=== PATIENT | male | born 1990 | race Caucasian/White ===

== ENCOUNTER 2016-11-22 09:00 | Outpatient (RCR) | payer MEDICAID ==
[~2016-11-22 09:00] MED LIST: /OL10DISTA PO; /QUET10TA PO; ACET50TA PO; AUGM875T27 PO; INVE234I IM; KLON0.5T PO; NO HISTORICAL MEDS; RISP1TAB3 PO; RISP2TAB3 PO; TRAZ50TA2 PO; TRAZ50TA4 PO; ZITH600T PO
== END 2016-11-27 ==
LOC: M OUTALCOH 09:00
PROVIDERS: ATTEND Psychiatry & Neurology Psychiatry
DX: F10.10 Alcohol abuse, uncomplicated (principal); F12.20 Cannabis dependence, uncomplicated

== ENCOUNTER 2016-12-21 16:00 | Outpatient (RCR) | payer MEDICAID | END 2016-12-25 | LOC: M OUTALCOH 16:00 | PROVIDERS: ATTEND Psychiatry & Neurology Psychiatry | DX: F10.10 Alcohol abuse, uncomplicated (principal); F12.20 Cannabis dependence, uncomplicated ==

== ENCOUNTER → 2017-01-17 | Outpatient (CLI) | payer OTHER, MEDICAID ==
[2017-01-17 13:32] LABS: MEAN CORPUSCULAR HEMOGLOBIN 30.1 pg (27.0-33.0); MEAN CORPUSCULAR HGB CONC 33.9 g/dl (32.0-36.5); RED CELL DISTRIBUTION WIDTH 12.3 % (11.5-14.5); WHITE BLOOD COUNT 8.4 K/mm3 (4.0-10.0)
[2017-01-17 13:34] LABS: ALBUMIN/GLOBULIN RATIO 1.43 (1.00-1.93); ALKALINE PHOSPHATASE 47 U/L (45-117); ALT/SGPT 23 U/L (12-78); ANION GAP 7 MEQ/L (8-16); AST/SGOT 24 U/L (15-37); BILIRUBIN,TOTAL 0.2 MG/DL (0.2-1.0); BLOOD UREA NITROGEN 15 MG/DL (7-18); CARBON DIOXIDE LEVEL 27 MEQ/L (21-32); CHLORIDE LEVEL 107 MEQ/L (98-107); CHOLESTEROL LEVEL 162 MG/DL (<200); CREATININE FOR GFR 1.02 MG/DL (0.70-1.30); GLOMERULAR FILTRATION RATE > 60.0 (>60); GLUCOSE, FASTING 104 MG/DL (70-105); SODIUM LEVEL 141 MEQ/L (136-145); TOTAL PROTEIN 6.8 GM/DL (6.4-8.2); TRIGLYCERIDES LEVEL 104 MG/DL (<150)
== END ==
LOC: M LAB 12:35
PROVIDERS: ATTEND Nurse Practitioner Family
DX: E78.5 Hyperlipidemia, unspecified (principal)

== ENCOUNTER 2017-02-09 02:08 | Emergency (ER) | payer MEDICAID, OTHER ==
[~2017-02-09] VITALS: Ht 170.2 cm; Wt 92.5 kg
[2017-02-09 02:13] VITALS: BP 138/97
[2017-02-09] MEDS ORDERED: INVE0.87 IM (02:26)
[2017-02-09] MEDS ORDERED: propanolol PO (02:26)
[2017-02-09] MEDS ORDERED: TRIC145T PO (02:26)
[2017-02-09] MEDS ORDERED: AMAN100T PO (02:26)
== END 2017-02-09 06:54 | disposition left against medical advice (07) ==
LOC: M ED 03:21
DX: R50.9 Fever, unspecified (principal); Z53.21 Procedure and treatment not carried out due to patient leaving prior to being seen by health care provider

== ENCOUNTER → 2017-02-21 | Outpatient (CLI) | payer MEDICAID ==
[~2017-02-21] MED LIST changes: +AMAN100T PO; +INVE0.87 IM; +TRIC145T PO; +propanolol PO
== END ==
LOC: M OUTALCOH 08:17
PROVIDERS: ATTEND Psychiatry & Neurology Psychiatry
DX: Z13.9 Encounter for screening, unspecified (principal)

== ENCOUNTER → 2017-06-11 | Outpatient (CLI) | payer OTHER ==
[~2017-06-11] MED LIST changes: +AMAN100C18 PO; +ATOR1TAB21; +CLON-412; +CLON-412 PO; +CLONI1TA PO; +DEPA250T2 PO; +DIVA500T9 PO; +FENO145T PO; +HYDR50TA70; +HYDR50TA70 PO; +HYDRO50TAB PO; +LEXA5TAB13; +LEXA5TAB13 PO; +LIPI20TA PO; +NICO21PAT TD; +OLAN5TAB PO; +OLAN5ZYD PO; +PROP1TAB29 PO; +QUET1TAB8 PO; +TRAZ50TA11 PO; -TRAZ50TA4 PO; +TRAZO50TA PO; -TRIC145T PO; +TRIC145T22 PO; +VITA100066 PO; +VITMTA PO
== END ==
LOC: M LAB 08:05
PROVIDERS: ATTEND Nurse Practitioner Psychiatric/Mental Health
DX: F20.9 Schizophrenia, unspecified (principal)

== ENCOUNTER → 2017-06-11 | Outpatient (CLI) | payer OTHER ==
[2017-06-11 08:51] LABS: MEAN CORPUSCULAR HEMOGLOBIN 30.9 pg (27.0-33.0); MEAN CORPUSCULAR HGB CONC 33.4 g/dl (32.0-36.5); MEAN CORPUSCULAR VOLUME 92.6 fl (80.0-96.0); RED CELL DISTRIBUTION WIDTH 12.9 % (11.5-14.5); WHITE BLOOD COUNT 5.6 K/mm3 (4.0-10.0)
[2017-06-11 09:22] LABS: ALBUMIN 3.8 GM/DL (3.2-5.2); ALBUMIN/GLOBULIN RATIO 1.23 (1.00-1.93); ALKALINE PHOSPHATASE 70 U/L (45-117); ALT/SGPT 22 U/L (12-78); ANION GAP 5 MEQ/L (8-16); AST/SGOT 21 U/L (15-37); BILIRUBIN,TOTAL 0.3 MG/DL (0.2-1.0); BLOOD UREA NITROGEN 10 MG/DL (7-18); CALCIUM LEVEL 8.7 MG/DL (8.5-10.1); CARBON DIOXIDE LEVEL 29 MEQ/L (21-32); CHLORIDE LEVEL 110 MEQ/L (98-107); CHOLESTEROL LEVEL 187 MG/DL (<200); CREATININE FOR GFR 0.99 MG/DL (0.70-1.30); GLOMERULAR FILTRATION RATE > 60.0 (>60); GLUCOSE, FASTING 102 MG/DL (70-105); POTASSIUM SERUM 4.1 MEQ/L (3.5-5.1); SODIUM LEVEL 144 MEQ/L (136-145); TOTAL PROTEIN 6.9 GM/DL (6.4-8.2); TRIGLYCERIDES LEVEL 113 MG/DL (<150)
== END ==
LOC: M LAB 08:09
PROVIDERS: ATTEND Nurse Practitioner Family
DX: E78.00 Pure hypercholesterolemia, unspecified (principal)

== ENCOUNTER 2017-07-13 06:31 | Inpatient (IN) | payer OTHER ==
[~2017-07-13] VITALS: Ht 170.2 cm; Wt 93.6 kg
[~2017-07-13 06:31] MED LIST changes: -AMAN100C18 PO; -ATOR1TAB21; -CLON-412; -CLON-412 PO; -CLONI1TA PO; -DEPA250T2 PO; -DIVA500T9 PO; -FENO145T PO; -HYDR50TA70; -HYDR50TA70 PO; -HYDRO50TAB PO; -LEXA5TAB13; -LEXA5TAB13 PO; -LIPI20TA PO; -NICO21PAT TD; -OLAN5TAB PO; -OLAN5ZYD PO; -PROP1TAB29 PO; -QUET1TAB8 PO; -TRAZO50TA PO; -VITA100066 PO; -VITMTA PO
[2017-07-13 07:02] LABS: MEAN CORPUSCULAR HEMOGLOBIN 31.3 pg (27.0-33.0); MEAN CORPUSCULAR HGB CONC 34.1 g/dl (32.0-36.5); MEAN CORPUSCULAR VOLUME 91.8 fl (80.0-96.0); RED CELL DISTRIBUTION WIDTH 12.4 % (11.5-14.5); WHITE BLOOD COUNT 5.4 K/mm3 (4.0-10.0)
[2017-07-13 07:24] LABS: METHADONE URINE NEGATIVE (NEGATIVE)
[2017-07-13 07:25] LABS: ALBUMIN 4.2 GM/DL (3.2-5.2); ALBUMIN/GLOBULIN RATIO 1.31 (1.00-1.93); ALKALINE PHOSPHATASE 55 U/L (45-117); ALT/SGPT 20 U/L (12-78); ANION GAP 10 MEQ/L (8-16); AST/SGOT 21 U/L (15-37); BILIRUBIN,DIRECT 0.1 MG/DL (0.0-0.2); BILIRUBIN,TOTAL 0.3 MG/DL (0.2-1.0); BLOOD UREA NITROGEN 17 MG/DL (7-18); CALCIUM LEVEL 8.9 MG/DL (8.5-10.1); CARBON DIOXIDE LEVEL 23 MEQ/L (21-32); CHLORIDE LEVEL 112 MEQ/L (98-107); CREATININE FOR GFR 1.19 MG/DL (0.70-1.30); GLOMERULAR FILTRATION RATE > 60.0 (>60); GLUCOSE, FASTING 123 MG/DL (70-105); POTASSIUM SERUM 4.1 MEQ/L (3.5-5.1); SODIUM LEVEL 145 MEQ/L (136-145); TOTAL PROTEIN 7.4 GM/DL (6.4-8.2)
[2017-07-13] MEDS ORDERED: NS 1,000 ML IV ONE (07:30)
[2017-07-13] MEDS ORDERED: CHARCOAL ACTIVATED LIQUID 25 GM/120 ML BTL PO ONE (08:00)
[2017-07-13] MEDS ORDERED: ONDANSETRON 4MG/2ML VIAL (J2405) IV ONE (08:30)
[2017-07-13] MEDS ORDERED: PROP1TAB29 PO (15:06)
[2017-07-13] MEDS ORDERED: MAALOX 30 ML SUSP *UDC PO PRN (17:00)
[2017-07-13] MEDS ORDERED: MOM 30ML SUSPENSION UDC PO PRN (17:00)
--- NOTE | 2017-07-13 17:28 | ECGEPIP ---
Stationary ECG Study [facility] - ED Test Date: 2017-07-13 Pat Name: VÍCTOR CONLEY Department: Room: - Gender: M Mrp Controller: rn : 1990 Requested By: SARMAD Mcdaniel Order Number: [id number] Reading MD: Erin Childress Measurements Intervals [place] Rate: 70 P: 51 NC: 164 QRS: 64 QRSD: 104 T: 28 QT: 339 QTc: 366 Interpretive Statements SINUS RHYTHM SIMILAR 12/22/14 Electronically Signed On 07-13-2017 17:28:26 EDT by Erin Childress
[2017-07-13] MEDS: traZODone 50 MG TAB PO PRN (20:40)
[2017-07-13] MEDS: FENOFIBRATE 145 MG TAB (TRICOR) PO SCH (21:00)
[2017-07-14 07:00] VITALS: BP 141/90
[2017-07-14] MEDS: FENOFIBRATE 145 MG TAB (TRICOR) PO SCH ×2 (08:47→21:09)
[2017-07-14] MEDS: NICOTINE 21MG/24HR 1 EA TRANSDERMAL TD SCH (12:17)
[2017-07-14] MEDS: OLANZapine ORAL DISINTEGRATING TAB 5MG PO PRN ×2 (12:17→21:10)
--- NOTE | 2017-07-14 17:31 | MHHPE ---
DATE OF ADMISSION: 07/13/2017 CHIEF COMPLAINT: Feels depressed, and took an overdose. SUBJECTIVE: He is 26 years old, he has a history of psychosis, has been diagnosed with schizophrenia in the recent past, though this is unclear. Has a history of auditory hallucinations, responding to internal stimuli, and has been in treatment, currently is seen at [facility]. He is on Invega Trinza, which is given every 3 months, he takes 410 mg, he last received it about 2 months ago. He says he attends his appointments regularly. He is also on amantadine at 100 mg twice a day, and says was off it for a few days. Other medications include propranolol 20 mg twice a day which he gets for anxiety. [facility] a [facility]. He has also been admitted here in the past. He says he was living at [facility] in [place] for about 4-1/2 years, and then recently apparently was smoking there, he says they suggested he was not allowed to, he decided he no longer wanted to be there, left them, says was homeless, though he is somewhat unclear about this, and says stayed at a friend's place, and during that time, had what he terms as a blackout and a seizure, says was taken to [facility], this happened within the last month or two. I do not have any details about that. He says they did not change any medicines, he was discharged, [facility] ([facility]) became involved in his care again, he was at the residence, and then was transferred to a [facility] apartment, says went there about 8 days ago, and that was anxiety provoking, in fact somewhat overwhelming, he says it was suggested that he should get a job, but he has felt he is not able to work. He felt despondent, and apparently was looking for cigarette butts outdoors, and then asked someone for a quarter and they refused. He says he went home, he took an overdose of several of the propranolols, he thought that would kill him "because they are blood pressure meds." He says he then decided to go to a bridge and jump off it, he called the police, informed them of what he was going to do, and they in fact met him there. He says he called them because he wanted them to stop him, says he is glad he did not jump. He does say, however, if it were not for them being there, he may well have gone ahead and jumped. Says gets the impression other people can listen to his thoughts, can know what they are, says during those times hears those thoughts as well, and the thoughts of other people, also suggests can read other peoples' thoughts, generally is concerned other people, not in the room, can make out what he is thinking. He denies any command hallucinations. Says has family in the area, but did not go into details, says they are aware he is here. PAST PSYCHIATRIC HISTORY: He has a history of inpatient hospitalizations, has been known to be psychotic, does say there are times when he feels "manic," which he terms as quicker thoughts, more intensity of the perceptual disturbances, says hears voices more often during those times. It is unclear why he was not taking the amantadine for a few days. Attends outpatient care at [facility]. MEDICAL HISTORY: Says had a blackout, was told he had a seizure, and was taken to [facility], though I am not aware of that, or have any details. ALLERGIES: SULFA DRUGS, VANCOMYCIN. MEDICATIONS: These include: - Invega Trinza 410 mg once every 3 months - amantadine 100 mg twice a day - propranolol 20 mg twice a day - Tricor 145 mg daily SOCIAL HISTORY: Has been living at [facility] for the last few years, says has family in the area, but he did not go into details. MENTAL STATUS EXAMINATION: He is neat, appears well-nourished. He is cooperative, though a bit guarded. Currently there is no agitation, no psychomotor retardation. Has good eye contact. Answers questions briefly, logically, and coherently. No abnormal movements are noted. Affect is restricted in range, though shows reactivity, appears mildly anxious. He denies any suicidal thoughts or intents at present. No homicidal ideas or intents. At present, does not appear to be internally preoccupied. No delusional ideations elicited. He is alert, oriented to time, place, and person. Intellect average. No fluctuation of consciousness. Judgment poor. Insight fair. INVESTIGATIONS: Complete blood count essentially within normal limits. Metabolic profile essentially within normal limits except for a slightly raised chloride at 112. Urine toxicology is positive for cannabis, which he says he smokes fairly regularly, he suggests that the voices become more intense when he does. VITAL SIGNS: Blood pressure 141/90, pulse 63, temperature 98.3. ASSESSMENT: Schizophrenia. Rule out schizoaffective disorder, bipolar type. Recent move to an apartment. Long history of mental illness. Limited social supports, recent homelessness. The patient has been distressed, psychotic, perceptual disturbances, auditory hallucinations, this has impacted his functioning. [place] restless yesterday as well, last night, and banged his hands on the wall, and then went to sleep, woke up feeling better. PLAN: He is admitted to the inpatient psychiatry unit, placed on relevant precautions, and for now we will put him on one-on-one observation until he is more stable, this is to help him maintain his safety, and that of others as well. He is to continue with his medications, we will confirm the date of the next Invega injection. He has been off the amantadine for the last few days, we may look at resuming it, preferably doing that slowly. We will look at obtaining collateral information. He will receive a medicine consult if indicated. We will encourage him to be involved in individual, group, and milieu therapy. He will be discharged with followup once he is stable. I would anticipate at least a 7 day stay. The assessment took 40 minutes.
[2017-07-14 18:00] VITALS: BP 138/71
[2017-07-14] MEDS: LOTRISONE CREAM 15 GM (BETAMETH/CLOTRIMAZOLE) TOP SCH (21:00)
[2017-07-14] MEDS: traZODone 50 MG TAB PO PRN (21:09)
--- NOTE | 2017-07-15 03:23 | HPE ---
DATE OF ADMISSION: 07/13/2017 HISTORY OF PRESENT ILLNESS: Please refer to psychiatric history and evaluation for further details on this admission. This examination and history is intended for medical issues, which may need treatment, followup or consult on this 26-year-old male. PRIMARY CARE PROVIDER: Sharlene Riggs, nurse practitioner at [facility]. PAST MEDICAL HISTORY: 1. Psychosis. 2. Hyperlipidemia. PAST SURGICAL HISTORY: None. ALLERGIES: SULFA drugs cause hives, VANCOMYCIN causes redness and itching. SOCIAL HISTORY: He is single. He lives in a transitional living services ([facility]) apartment. He smokes approximately 50 cigarettes per day. He smokes marijuana. He does not drink alcohol. FAMILY HISTORY: Noncontributory. LABORATORY STUDIES: CBC was normal. Sodium 145, potassium 4.1, chloride 112, BUN and creatinine 17 and 1.19, nonfasting glucose 123. Urine was positive for cannabinoids. HOME MEDICATIONS: - amantadine 100 mg by mouth twice a day - fenofibrate 145 mg by mouth nightly - propranolol 20 mg by mouth twice a day as needed for anxiety - Invega Trinza 410 mg/1.315 mL injection intramuscularly (IM) every 3 months REVIEW OF SYSTEMS: 10-system review was done, was unremarkable. Patient had no complaints. OBJECTIVE: 26-year-old cooperative male in no acute distress. Height 67 inches, weight 93.6 kg, body mass index (BMI) 32.3. Blood pressure 132/78, pulse 63, respirations 16, temperature 98.5. Patient is alert and oriented times three. Pupils equal and react to light. Extraocular muscles intact. Cornea and sclerae clear. Conjunctivae were normal. No facial asymmetry. Pharynx, tongue and gums pink and moist. Tongue is midline. Neck is supple without lymphadenopathy. No thyromegaly, no goiter. Carotids 2+ without bruit. Chest clear to auscultation without wheeze or retraction. Heart is regular. Abdomen is benign. Bowel sounds positive. Genitourinary/rectal: Not done. Extremities show equal strength, full range of motion. No cyanosis, clubbing or edema. Skin is warm and dry. Small, quarter sized area top of left foot non-vesicular rash. No redness, drainage or swelling. Peripheral pulses equal and palpable bilaterally. IMPRESSION: 1. Scaly eczematous patch top of left foot. Will order Amnarisone twice a day. 2. Hyperlipidemia. Continue fenofibrate. 3. Psychiatric plan per psychiatry.
[2017-07-15 06:00] VITALS: BP 140/80
[2017-07-15] MEDS: OLANZapine ORAL DISINTEGRATING TAB 5MG PO PRN ×2 (08:07→20:43)
[2017-07-15] MEDS: FENOFIBRATE 145 MG TAB (TRICOR) PO SCH ×2 (08:09→20:34)
[2017-07-15] MEDS: LOTRISONE CREAM 15 GM (BETAMETH/CLOTRIMAZOLE) TOP SCH ×2 (08:09→20:34)
[2017-07-15] MEDS: NICOTINE 21MG/24HR 1 EA TRANSDERMAL TD SCH (08:09)
[2017-07-15] MEDS: cloNIDine 0.1 MG TAB PO SCH ×2 (10:09→20:34)
[2017-07-15 10:11] VITALS: BP 124/69
[2017-07-15] MEDS: AMANTADINE 100 MG CAP PO SCH (12:05)
--- NOTE | 2017-07-15 13:00 | MHIPNPDOC ---
[facility] Progress Note Progress Note DATE OF SERVICE: 07/15/17 HISTORY: day 3 of admission for overdose of medication and depression. VITAL SIGNS: See below. NEW TEST RESULTS: . Stationary ECG Study [facility] - ED Test Date: 2017-07-13 Pat Name: VÍCTOR CONLEY Department: Room: - Gender: M Cmm Inspector: rn : 1990 Requested By: SARMAD Mcdaniel Order Number: [id number] Reading MD: Erin Childress Measurements Intervals [place] Rate: 70 P: 51 DC: 164 QRS: 64 QRSD: 104 T: 28 QT: 339 QTc: 366 Interpretive Statements SINUS RHYTHM SIMILAR 12/22/14 Electronically Signed On 07-13-2017 17:28:26 EDT by Erin Childress DD: Erin Childress MD 07/13/17 0646 CURRENT MEDICATIONS: See below. MENTAL STATUS EXAMINATION: Patient is a 26-year old male, who is wearing hospital PJ's, laying in bed, needs a hair cut, good eye contact, cooperative. Speech: Is spontaneous Language skills are intact Thought processes including: linear. Thought content: appropriate. Abstract reasoning, and computation: fair. Description of associations: good. Description of abnormal or psychotic thoughts: denies having thoughts to harm self or others . Judgment: limited Insight: very limited. Orientation: well oriented in all spheres. Recent and remote memory: good. Attention span and concentration:adequate. Fund of knowledge: full Mood: depressed & anxious. Affect: congruent DIAGNOSES: Schizophrenia. Rule out schizoaffective disorder, bipolar type. Recent move to an apartment. Long history of mental illness. Limited social supports, recent homelessness. ASSESSMENT:spoke with pat this morning regarding his 1:1 status. Discussed his behavior and damage he caused to the wall in his room. He stated since he couldn 't smoke a cigarette or marijuana he gouged the wall. He apologized and promised not to do this again. He stated he would keep his behavior under control and not damage our property or do anything to harm himself or any one else while here. Pt appears to use pounding hands on wall as a coping mechanism. His knuckles on his left hand have abrasions on them but are not bleeding. Hands are clean. Pt agrees to attend a group each morning and each afternoon while here. MANAGEMENT PLAN: will provide clonidine to help with anxiety, will contact Provider at [facility] to find out when next Trinza injection is due. Will assist pt in further psychiatric stabilization and arrange meeting with TLS providers prior to discharge. TIME SPENT: 30 minutes. Vital Signs Vital Signs Date Time Temp Pulse Resp B/P (MAP) Pulse Ox O2 Delivery O2 Flow Rate FiO2 07/15/17 10:11 86 16 124/69 (87) 07/15/17 06:00 97.9 07/13/17 15:38 98 Room Air Current Medications Current Medications Acetaminophen (Tylenol Tab) 650 mg Q6HP PRN PO HEADACHE or DISCOMFORT; Start at 17:00; Stop 08/12/17 at 16:59 Al Hydrox/Mg Hydrox/Simethicone (Mylanta) 30 ml Q4HP PRN PO HEARTBURN/ INDIGESTION; Start 07/13/17 at 17:00; Stop 08/12/17 at 16:59 Amantadine HCl (Symmetrel) 100 mg QAM PO Last administered on 07/15/17 12:05; Start 07/15/17 at 09:00; Stop 08/14/17 at 08:59 Betamethasone/ Clotrimazole (Lotrisone Cream) bid TO RASH TOP OF L... BID TOP Last administered on 07/15/17 08:09; Start 07/14/17 at 21:00; Stop 08/13/17 at 20:59 Clonidine HCl (Catapres) 0.1 mg BID PO Last administered on 07/15/17 10:09; Start 07/15/17 at 09:00; Stop 08/14/17 at 08:59 Fenofibrate (Tricor) 145 mg BID PO Last administered on 07/14/17 21:09; Start 07/13/17 at 21:00; Stop 08/12/17 at 20:59 Home Med (Med Rec Complete!) ASDIRECTED XX ; Start 07/13/17 at 15:15; Stop at 15:15; Status DC Magnesium Hydroxide (Milk Of Magnesia) 30 ml DAILYPRN PRN PO CONSTIPATION; Start 07/13/17 at 17:00; Stop 08/12/17 at 16:59 Nicotine (Nicoderm Cq 21mg) 1 patch DAILY TD Last administered on 07/15/17 08: 09; Start 07/14/17 at 09:00; Stop 08/13/17 at 08:59 Olanzapine (ZyPREXA ZYDIS) 5 mg Q4HP PRN PO ANXIETY/AGITATION Last administered on 07/15/17 08:07; Start 07/14/17 at 12:00; Stop 08/13/17 at 11: 59 Trazodone HCl (Desyrel) 50 mg QHSP PRN PO INSOMNIA Last administered on 21:09; Start 07/13/17 at 17:00; Stop 08/12/17 at 16:59 Allergies Coded Allergies: Sulfa Drugs (Verified Allergy, Severe, HIVES, 10/25/13) Corie Pablo Jul 15, 2017 12:59
[2017-07-15 18:00] VITALS: BP 115/57
[2017-07-15] MEDS: traZODone 50 MG TAB PO PRN (20:34)
[2017-07-16 06:00] VITALS: BP 140/79
[2017-07-16] MEDS: NICOTINE 21MG/24HR 1 EA TRANSDERMAL TD SCH (09:00)
[2017-07-16] MEDS: AMANTADINE 100 MG CAP PO SCH (09:06)
[2017-07-16] MEDS: cloNIDine 0.1 MG TAB PO SCH ×2 (09:06→21:30)
[2017-07-16] MEDS: FENOFIBRATE 145 MG TAB (TRICOR) PO SCH ×2 (09:06→21:30)
[2017-07-16] MEDS: LOTRISONE CREAM 15 GM (BETAMETH/CLOTRIMAZOLE) TOP SCH ×2 (09:07→21:32)
--- NOTE | 2017-07-16 10:51 | MHIPNPDOC ---
[facility] Progress Note Progress Note DATE OF SERVICE: 07/16/17 HISTORY: day4 of admission for overdose due to frustration. VITAL SIGNS: See below. NEW TEST RESULTS: na CURRENT MEDICATIONS: See below. MENTAL STATUS EXAMINATION: Patient is a 26-year old male, who is wearing hospital PJ's, laying in bed, needs a hair cut, good eye contact, cooperative. Speech: Is spontaneous Language skills are intact Thought processes including: linear. Thought content: appropriate. Abstract reasoning, and computation: fair. Description of associations: good. Description of abnormal or psychotic thoughts: denies having thoughts to harm self or others . Judgment: limited Insight: very limited. Orientation: well oriented in all spheres. Recent and remote memory: good. Attention span and concentration:adequate. Fund of knowledge: full Mood: depressed & anxious. Affect: congruent DIAGNOSES: Schizophrenia. Rule out schizoaffective disorder, bipolar type. Recent move to an apartment. Long history of mental illness. Limited social supports, recent homelessness. ASSESSMENT:Alejandro attended treatment planning meeting. He was an active participant in the session. He is adhering to requests to participate in programming. he is taking meds as ordered. Overall he is making good progress. We will discuss substance abuse options with him. His TLS CM is not available to attend a discharge planning meeting. We will explore his employment options with him and try to convince him to have his mother meet with us prior to discharge. sleep is good. appetite is good. social interactions are appropriate. hygiene is good. Encourage pt to become more proactive about his future. He is unable to get SSDI due to his cannabis use. He will need to get a skill or a job.Enc pt to identify his coping skills to prevent future hospitalizations. MANAGEMENT PLAN: anticipate discharge this week. next Trinza injection due on per [facility]. Will likely be out to receive that at the clinic. will continue to assess stability, safety and future goals. TIME SPENT: 15 minutes. Vital Signs Vital Signs Date Time Temp Pulse Resp B/P (MAP) Pulse Ox O2 Delivery O2 Flow Rate FiO2 07/16/17 09:06 120/70 07/16/17 06:00 97.8 60 18 07/13/17 15:38 98 Room Air Current Medications Current Medications Acetaminophen (Tylenol Tab) 650 mg Q6HP PRN PO HEADACHE or DISCOMFORT; Start at 17:00; Stop 08/12/17 at 16:59 Al Hydrox/Mg Hydrox/Simethicone (Mylanta) 30 ml Q4HP PRN PO HEARTBURN/ INDIGESTION; Start 07/13/17 at 17:00; Stop 08/12/17 at 16:59 Amantadine HCl (Symmetrel) 100 mg QAM PO Last administered on 07/16/17 09:06; Start 07/15/17 at 09:00; Stop 08/14/17 at 08:59 Betamethasone/ Clotrimazole (Lotrisone Cream) bid TO RASH TOP OF L... BID TOP Last administered on 07/16/17 09:07; Start 07/14/17 at 21:00; Stop 08/13/17 at 20:59 Clonidine HCl (Catapres) 0.1 mg BID PO Last administered on 07/16/17 09:06; Start 07/15/17 at 09:00; Stop 08/14/17 at 08:59 Fenofibrate (Tricor) 145 mg BID PO Last administered on 07/16/17 09:06; Start 07/13/17 at 21:00; Stop 08/12/17 at 20:59 Home Med (Med Rec Complete!) ASDIRECTED XX ; Start 07/13/17 at 15:15; Stop at 15:15; Status DC Magnesium Hydroxide (Milk Of Magnesia) 30 ml DAILYPRN PRN PO CONSTIPATION; Start 07/13/17 at 17:00; Stop 08/12/17 at 16:59 Nicotine (Nicoderm Cq 21mg) 1 patch DAILY TD Last administered on 07/15/17 08: 09; Start 07/14/17 at 09:00; Stop 08/13/17 at 08:59 Olanzapine (ZyPREXA ZYDIS) 5 mg Q4HP PRN PO ANXIETY/AGITATION Last administered on 07/15/17 20:43; Start 07/14/17 at 12:00; Stop 08/13/17 at 11: 59 Trazodone HCl (Desyrel) 50 mg QHSP PRN PO INSOMNIA Last administered on 20:34; Start 07/13/17 at 17:00; Stop 08/12/17 at 16:59 Allergies Coded Allergies: Sulfa Drugs (Verified Allergy, Severe, HIVES, 10/25/13) Corie Pablo Jul 16, 2017 10:51
[2017-07-16 18:00] VITALS: BP 132/76
[2017-07-16] MEDS: ACETAMINOPHEN TAB 650MG DOSE (2X325MG) PO PRN (21:30)
[2017-07-16] MEDS: OLANZapine ORAL DISINTEGRATING TAB 5MG PO PRN (21:30)
[2017-07-16] MEDS: traZODone 50 MG TAB PO PRN (21:30)
[2017-07-17 06:51] VITALS: BP 130/69
[2017-07-17] MEDS: FENOFIBRATE 145 MG TAB (TRICOR) PO SCH ×2 (09:26→21:39)
[2017-07-17] MEDS: AMANTADINE 100 MG CAP PO SCH (09:26)
[2017-07-17] MEDS: cloNIDine 0.1 MG TAB PO SCH ×2 (09:27→21:39)
[2017-07-17] MEDS: OLANZapine ORAL DISINTEGRATING TAB 5MG PO PRN ×2 (09:28→21:39)
[2017-07-17] MEDS: NICOTINE 21MG/24HR 1 EA TRANSDERMAL TD SCH (09:28)
[2017-07-17] MEDS: LOTRISONE CREAM 15 GM (BETAMETH/CLOTRIMAZOLE) TOP SCH ×2 (09:28→21:42)
--- NOTE | 2017-07-17 15:50 | MHIPNPDOC ---
[facility] Progress Note Progress Note DATE OF SERVICE: 07/17/17 HISTORY: day 5 of admission for overdose related to depression and not being able to do what he wanted to do. VITAL SIGNS: See below. NEW TEST RESULTS: na CURRENT MEDICATIONS: See below. MENTAL STATUS EXAMINATION: Patient is a 26-year old male, who is wearing hospital PJ's, laying in bed, needs a hair cut, good eye contact, cooperative. Speech: Is spontaneous Language skills are intact Thought processes including: linear. Thought content: appropriate. Abstract reasoning, and computation: fair. Description of associations: good. Description of abnormal or psychotic thoughts: denies having thoughts to harm self or others . Judgment: fair Insight: fair. Orientation: well oriented in all spheres. Recent and remote memory: good. Attention span and concentration:adequate. Fund of knowledge: full Mood: euthymic. Affect: congruent DIAGNOSES: Schizophrenia. Rule out schizoaffective disorder, bipolar type. Recent move to an apartment. Long history of mental illness. Limited social supports, recent homelessness. ASSESSMENT:met with pt for 1:1. he has done very well on the unit, attending programming and no more behavioral issues. He is eating well and attending to hygiene. H eis appropriate with staff and peers and would like to be discharged. His Trinza injection is due next week 07/24 at [facility]. he wants to remain on clonidine and not have propranolol prescribed for him. He states he likes the clonidine better for anxiety mgt. He is willing to resume tx at [facility] with Dr. Earl. Regarding substance abuse pt feels cannabis is of benefit to him and he does not hallucinate when he uses it. He relies on family and friends to provide it for him as he does not have any income. He decliines any referral for substance abuse and is discouraged from continuing to use marijuana. It's affects on receptors was discussed. Nicotine is a factor as well and can increase the amount of medication h eneeds to keep him feeling well and asymptomatic. He indicates he understands these things. Pt reports "minimal" ETOH use. 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 he is encouraged to keep busy and productive and set up a daily routine that is useful to him. Pt denies thoughts of suicide, no voices. He hopes to resume a routine of running and working out in the Gym. He asked how the clonidine would affect this and was cautioned that if he feels weak or dizzy or like he will pass out to talk to the doctor about lowering his dose. He is advised to remain well nourished and hydrated as that can affect how he feels on the med as well. If he feels the medication is interfering he should reduce the exercise until he has a talk with his doctor. MANAGEMENT PLAN: discharge to his home tomorrow. he declines cab services, says he can walk. he identifies that the admission has benefitted him due to the nice people has met here and he knows he can reach out and call people if he should feel like he may harm himself. Pt is not interested in a family meeting prior to discharge. TIME SPENT: 15 minutes. Vital Signs Vital Signs Date Time Temp Pulse Resp B/P (MAP) Pulse Ox O2 Delivery O2 Flow Rate FiO2 07/17/17 09:27 123/72 07/17/17 06:51 98.2 65 18 07/13/17 15:38 98 Room Air Current Medications Current Medications Acetaminophen (Tylenol Tab) 650 mg Q6HP PRN PO HEADACHE or DISCOMFORT Last administered on 07/16/17 21:30; Start 07/13/17 at 17:00; Stop 08/12/17 at 16: 59 Al Hydrox/Mg Hydrox/Simethicone (Mylanta) 30 ml Q4HP PRN PO HEARTBURN/ INDIGESTION; Start 07/13/17 at 17:00; Stop 08/12/17 at 16:59 Amantadine HCl (Symmetrel) 100 mg QAM PO Last administered on 07/17/17 09:26; Start 07/15/17 at 09:00; Stop 08/14/17 at 08:59 Betamethasone/ Clotrimazole (Lotrisone Cream) bid TO RASH TOP OF L... BID TOP Last administered on 07/16/17 21:32; Start 07/14/17 at 21:00; Stop 08/13/17 at 20:59 Clonidine HCl (Catapres) 0.1 mg BID PO Last administered on 07/17/17 09:27; Start 07/15/17 at 09:00; Stop 08/14/17 at 08:59 Fenofibrate (Tricor) 145 mg BID PO Last administered on 07/17/17 09:26; Start 07/13/17 at 21:00; Stop 08/12/17 at 20:59 Home Med (Med Rec Complete!) ASDIRECTED XX ; Start 07/13/17 at 15:15; Stop at 15:15; Status DC Magnesium Hydroxide (Milk Of Magnesia) 30 ml DAILYPRN PRN PO CONSTIPATION; Start 07/13/17 at 17:00; Stop 08/12/17 at 16:59 Nicotine (Nicoderm Cq 21mg) 1 patch DAILY TD Last administered on 07/15/17 08: 09; Start 07/14/17 at 09:00; Stop 08/13/17 at 08:59 Olanzapine (ZyPREXA ZYDIS) 5 mg Q4HP PRN PO ANXIETY/AGITATION Last administered on 07/17/17 09:28; Start 07/14/17 at 12:00; Stop 08/13/17 at 11: 59 Trazodone HCl (Desyrel) 50 mg QHSP PRN PO INSOMNIA Last administered on 21:30; Start 07/13/17 at 17:00; Stop 08/12/17 at 16:59 Allergies Coded Allergies: Sulfa Drugs (Verified Allergy, Severe, HIVES, 10/25/13) Corie Pablo Jul 17, 2017 15:50
[2017-07-17 18:30] VITALS: BP 133/69
[2017-07-17] MEDS: traZODone 50 MG TAB PO PRN (21:40)
[2017-07-17] MEDS: ACETAMINOPHEN TAB 650MG DOSE (2X325MG) PO PRN (21:41)
[2017-07-18 06:59] VITALS: BP 128/68
[2017-07-18 08:39] VITALS: BP 128/68
[2017-07-18] MEDS: FENOFIBRATE 145 MG TAB (TRICOR) PO SCH (08:39)
[2017-07-18] MEDS: AMANTADINE 100 MG CAP PO SCH (08:39)
[2017-07-18] MEDS: cloNIDine 0.1 MG TAB PO SCH (08:39)
[2017-07-18] MEDS: LOTRISONE CREAM 15 GM (BETAMETH/CLOTRIMAZOLE) TOP SCH (08:40)
[2017-07-18] MEDS: NICOTINE 21MG/24HR 1 EA TRANSDERMAL TD SCH (08:40)
[2017-07-18] MEDS ORDERED: CLONI1TA PO (09:44)
[2017-07-18] MEDS ORDERED: NICO21PAT TD (09:44)
[2017-07-18] MEDS ORDERED: AMAN100C18 PO (09:44)
[2017-07-18] MEDS ORDERED: TRAZO50TA PO (09:44)
[2017-07-18] MEDS ORDERED: OLAN5ZYD PO (09:44)
--- NOTE | 2017-07-18 16:57 | MHDSPDOC ---
[facility] Discharge Summary Discharge Summary DATE OF ADMISSION: Jul 13, 2017 at 14:30 DATE OF DISCHARGE: Jul 18, 2017 at 10:25 DISCHARGE DIAGNOSES: Schizophrenia. Recent move to an apartment. Long history of mental illness. Limited social supports, recent homelessness. REASON FOR ADMISSION: pt attempted overdose CONSULTANTS INVOLVED: dolly TREATMENT AND PROGRESS ON THE UNIT : Pt originally acted out very poorly, gouging the wall in his room when he was not allowed to smoke a cigarette or have marijuana. He was put on a 1:1 as his behavior was threatening and dangerous. After interviewed by assembly instructions writer the 1:1 was discontinued after he agreed not to engage in any type of threatening behavior or damage property for the duration of his stay. He was true to his word and was a model patient after this. HOSPITAL COURSE: pt requested a medication adjustment. he no longer found benefit to propranolol and was started on clonidine which he does find helpful for anxiety symptoms. He tolerated the med change well and asked appropriate questions, answers were provided to his satisfaction. Pt is seen at [facility] where he receives an injection of Invega Trinza that has been helpful for psychotic symptoms. He did request prn Olanzapine for anxiety on the unit and took this on at least 2 occasions. Pt attended programming regularly and was active on the unit. He was social with peers and behaved well after the first day. He did show some amotivation and would benefit from regular encouragement to keep busy and active in the community. Pt ate well. He slept well. he paid attention to hygiene regularly. Pt did not have any panic attacks on the unit. DISCHARGE ASSESSMENT: Pt benefitted from his stay. He can identify some coping skills to help with his frustration. He was told he must investigate a prescription for medical marijuana if he his going to continue to use it daily as has been his pattern. He is not encouraged to continue using but only as a means to prevent legal problems. pt mostly encouraged to get a job and make good use of his time doing productive things. MENTAL STATUS EXAMINATION ON DISCHARGE: MEDICATIONS ON DISCHARGE: - clonidine for anxiety. - Amantadine for dystonia. - Hydroxyzine for anxiety. - olanzapine prn for agitation - trazodone for insomnia PLAN/FOLLOWUP ARRANGEMENTS: Next injection of Invega Trinza 410 mg due on made appt with [facility] and pt has information. The amount of time spent in the coordination of care for this patient was approximately 30 minutes. Vital Signs/I&Os Vital Signs Date Time Temp Pulse Resp B/P (MAP) Pulse Ox O2 Delivery O2 Flow Rate FiO2 07/18/17 08:39 128/68 07/18/17 06:59 98.6 63 16 07/13/17 15:38 98 Room Air Medications Scheduled (Invega Trinza) 410 Mg/1.315 Ml Inj, 410 MG IM Q3M, (Reported) STATES IT HAS BEEN ABOUT 2 MONTHS SINCE LAST INJ Amantadine HCl (Amantadine HCl) 100 Mg Tab, 100 MG PO BID, (Reported) Amantadine HCl (Amantadine HCl) 100 Mg Cap, 100 MG PO BID for dystonia for 7 Days, #14 Clonidine Hcl (Catapres) 0.1 Mg Tab, 0.1 MG PO BID for ANXIETY for 7 Days, #14 Fenofibrate (Tricor) 145 Mg Tab, 145 MG PO QHS, (Reported) Nicotine (Nicotine Transdermal Syst) 21 Mg/24 Hr Dis, 1 PATCH TD DAILY for NICOTINE WITHDRAWAL for 7 Days, #7 Scheduled PRN Olanzapine (Olanzapine Odt) 5 Mg Tab, 5 MG PO Q4HP PRN for ANXIETY/AGITATION for 7 Days, #7 Trazodone HCl (Trazodone HCl) 50 Mg Tab, 50 MG PO QHSP PRN for INSOMNIA for 7 Days, #7 Allergies Coded Allergies: Sulfa Drugs (Verified Allergy, Severe, HIVES, 10/25/13) Corie Pablo Jul 18, 2017 16:57
--- NOTE | 2017-07-23 15:48 | MHIPNPDOC ---
[facility] Progress Note Progress Note DATE OF SERVICE: 07/23/17 ASSESSMENT:pt was contacted by CDP regarding status after discharge. he states he has used all his clonidine already. he says he has been having bad dreams from trazodone so he is only taking trazodone every other night. cautioned him about taking medication in excess than what is prescribed and untoward reaction of falls or hypotension. He says he has not any side effects. MANAGEMENT PLAN: begin hydroxyzine 50 mg q 6 hr prn anxiety and 100 mg as needed for insomnia # 42/5. TIME SPENT: 20 minutes. Vital Signs Vital Signs Date Time Temp Pulse Resp B/P (MAP) Pulse Ox O2 Delivery O2 Flow Rate FiO2 07/18/17 08:39 128/68 07/18/17 06:59 98.6 63 16 Current Medications Current Medications Acetaminophen (Tylenol Tab) 650 mg Q6HP PRN PO HEADACHE or DISCOMFORT Last administered on 07/17/17 21:41; Start 07/13/17 at 17:00; Stop 07/18/17 at 11:24 ; Status DC Al Hydrox/Mg Hydrox/Simethicone (Mylanta) 30 ml Q4HP PRN PO HEARTBURN/ INDIGESTION; Start 07/13/17 at 17:00; Stop 07/18/17 at 11:24; Status DC Amantadine HCl (Symmetrel) 100 mg QAM PO Last administered on 07/18/17 08:39; Start 07/15/17 at 09:00; Stop 07/18/17 at 11:24; Status DC Betamethasone/ Clotrimazole (Lotrisone Cream) bid TO RASH TOP OF L... BID TOP Last administered on 07/18/17 08:40; Start 07/14/17 at 21:00; Stop 07/18/17 at 11:24; Status DC Clonidine HCl (Catapres) 0.1 mg BID PO Last administered on 07/18/17 08:39; Start 07/15/17 at 09:00; Stop 07/18/17 at 11:24; Status DC Fenofibrate (Tricor) 145 mg BID PO Last administered on 07/18/17 08:39; Start 07/13/17 at 21:00; Stop 07/18/17 at 11:24; Status DC Home Med (Med Rec Complete!) ASDIRECTED XX ; Start 07/13/17 at 15:15; Stop at 15:15; Status DC Magnesium Hydroxide (Milk Of Magnesia) 30 ml DAILYPRN PRN PO CONSTIPATION; Start 07/13/17 at 17:00; Stop 07/18/17 at 11:24; Status DC Nicotine (Nicoderm Cq 21mg) 1 patch DAILY TD Last administered on 07/15/17 08: 09; Start 07/14/17 at 09:00; Stop 07/18/17 at 11:24; Status DC Olanzapine (ZyPREXA ZYDIS) 5 mg Q4HP PRN PO ANXIETY/AGITATION Last administered on 07/17/17 21:39; Start 07/14/17 at 12:00; Stop 07/18/17 at 11:24 ; Status DC Trazodone HCl (Desyrel) 50 mg QHSP PRN PO INSOMNIA Last administered on 21:40; Start 07/13/17 at 17:00; Stop 07/18/17 at 11:24; Status DC Allergies Coded Allergies: Sulfa Drugs (Verified Allergy, Severe, HIVES, 10/25/13) Corie Pablo Jul 23, 2017 15:48
[2017-08-22] MEDS ORDERED: ATOR1TAB21 (16:29)
[2017-08-22] MEDS ORDERED: CLON-412 (16:29)
[2017-08-22] MEDS ORDERED: LEXA5TAB13 (16:29)
[2017-08-22] MEDS ORDERED: HYDR50TA70 (16:29)
[2017-08-22] MEDS ORDERED: OLAN5TAB PO (22:02)
[2017-08-22] MEDS ORDERED: VITMTA PO (22:02)
[2017-08-22] MEDS ORDERED: VITA100066 PO (22:02)
[2017-08-22] MEDS ORDERED: LEXA5TAB13 PO (22:02)
[2017-08-22] MEDS ORDERED: CLON-412 PO (22:02)
[2017-08-22] MEDS ORDERED: HYDRO50TAB PO (22:02)
[2017-08-22] MEDS ORDERED: FENO145T PO (22:02)
[2017-08-22] MEDS ORDERED: TRAZ50TA11 PO (22:02)
[2017-08-22] MEDS ORDERED: AMAN100C18 PO (22:02)
[2017-08-22] MEDS ORDERED: LIPI20TA PO (22:02)
[2017-08-22] MEDS ORDERED: INVE0.87 IM (22:02)
[2017-08-22] MEDS ORDERED: HYDR50TA70 PO (22:02)
[2017-08-29] MEDS ORDERED: QUET1TAB8 PO (11:10)
[2017-08-29] MEDS ORDERED: DIVA500T9 PO (11:10)
[2017-08-29] MEDS ORDERED: AMAN100C18 PO (11:10)
[2017-08-29] MEDS ORDERED: DEPA250T2 PO (11:10)
== END 2017-07-18 10:25 | disposition home or self-care (01) | DRG 750 ==
LOC: M ED 06:31 → M ED INP 14:30 → M PSY 15:42
PROVIDERS: ADMIT Psychiatry & Neurology Psychiatry; ATTEND Psychiatry & Neurology Psychiatry
DX: F20.9 Schizophrenia, unspecified (principal); E78.5 Hyperlipidemia, unspecified; Z88.2 Allergy status to sulfonamides; Z88.1 Allergy status to other antibiotic agents; F17.210 Nicotine dependence, cigarettes, uncomplicated; Z79.899 Other long term (current) drug therapy; R21 Rash and other nonspecific skin eruption

== ENCOUNTER 2017-10-07 16:25 | Inpatient (IN) | payer OTHER, MEDICAID ==
[2017-10-07 17:08] LABS: HEMATOCRIT 45.4 % (42.0-52.0); HEMOGLOBIN 15.5 g/dl (14.0-18.0); MEAN CORPUSCULAR HEMOGLOBIN 30.1 pg (27.0-33.0); MEAN CORPUSCULAR HGB CONC 34.1 g/dl (32.0-36.5); MEAN CORPUSCULAR VOLUME 88.2 fl (80.0-96.0); PLATELET COUNT, AUTOMATED 286 10^3/uL (150-450); RED BLOOD COUNT 5.15 10^6/uL (4.30-6.10); WHITE BLOOD COUNT 16.1 10^3/uL (4.0-10.0)
[2017-10-07 17:27] LABS: AMPHETAMINES LEVEL URINE NEGATIVE (NEGATIVE); BARBITURATES URINE NEGATIVE (NEGATIVE); BENZODIAZEPINES URINE NEGATIVE (NEGATIVE); CANNABINOIDS URINE POSITIVE (NEGATIVE); COCAINE METABOLITE URINE NEGATIVE (NEGATIVE); METHADONE URINE NEGATIVE (NEGATIVE); OPIATES URINE NEGATIVE (NEGATIVE); PHENCYCLIDINE URINE NEGATIVE (NEGATIVE)
[2017-10-07 17:38] LABS: ALBUMIN 4.4 GM/DL (3.2-5.2); ALBUMIN/GLOBULIN RATIO 1.33 (1.00-1.93); ALKALINE PHOSPHATASE 59 U/L (45-117); ALT/SGPT 37 U/L (12-78); ANION GAP 12 MEQ/L (8-16); AST/SGOT 52 U/L (7-37); BILIRUBIN,DIRECT < 0.1 MG/DL (0.0-0.2); BILIRUBIN,TOTAL 0.3 MG/DL (0.2-1.0); BLOOD UREA NITROGEN 14 MG/DL (7-18); CALCIUM LEVEL 8.9 MG/DL (8.5-10.1); CARBON DIOXIDE LEVEL 25 MEQ/L (21-32); CHLORIDE LEVEL 102 MEQ/L (98-107); CREATININE FOR GFR 1.29 MG/DL (0.70-1.30); GLOMERULAR FILTRATION RATE > 60.0 (>60); GLUCOSE, FASTING 107 MG/DL (70-105); POTASSIUM SERUM 3.7 MEQ/L (3.5-5.1); SALICYLATE LEVEL 2.2 MG/DL (5.0-30.0); SODIUM LEVEL 139 MEQ/L (136-145); TOTAL PROTEIN 7.7 GM/DL (6.4-8.2)
[2017-10-07 17:42] LABS: ACETAMINOPHEN LEVEL < 2.0 UG/ML (10.0-30.0); ETHYL ALCOHOL (ETHANOL) < 0.003 % (0.000-0.010)
[2017-10-07] MEDS ORDERED: ACETAMINOPHEN TAB 650MG DOSE (2X325MG) PO (20:00)
[2017-10-07] MEDS ORDERED: MAALOX 30 ML SUSP *UDC PO (20:00)
[2017-10-07] MEDS ORDERED: MOM 30ML SUSPENSION UDC PO (20:00)
[2017-10-07] MEDS: traZODone 50 MG TAB PO (21:53)
[2017-10-08] MEDS: NICOTINE 21MG/24HR 1 EA TRANSDERMAL TD (09:00)
[2017-10-08] MEDS: OLANZapine 5 MG TAB PO ×2 (10:21→20:29)
[2017-10-08] MEDS: ESCITALOPRAM OXALATE 5MG TABLET (LEXAPRO) PO (10:21)
[2017-10-08] MEDS: cloNIDine 0.1 MG TAB PO ×2 (10:21→20:31)
[2017-10-08] MEDS: AMANTADINE 100 MG CAP PO ×2 (12:44→20:29)
[2017-10-08] MEDS: hydrOXYzine 50 MG TAB PO (20:29)
[2017-10-08] MEDS: ATORVASTATIN 20 MG TAB PO (20:29)
[2017-10-08] MEDS: traZODone 50 MG TAB PO (20:29)
[2017-10-08] MEDS: FENOFIBRATE 145 MG TAB (TRICOR) PO (20:29)
[2017-10-08] MEDS: ACYCLOVIR 5% OINT 15GM TOP (21:00)
[2017-10-09] MEDS: ACYCLOVIR 5% OINT 15GM TOP ×5 (06:23→20:11)
[2017-10-09 07:09] LABS: BASO % 0.5 % (0.0-1.0); EOS # 0.2 10^3/uL (0.0-0.50); EOS % 2.9 % (0.0-3.0); HEMATOCRIT 44.9 % (42.0-52.0); IMMATURE GRANULOCYTE % 0.3 % (0-0); LYMPH # 1.9 10^3/uL (1.5-6.5); MEAN CORPUSCULAR HEMOGLOBIN 29.8 pg (27.0-33.0); MEAN CORPUSCULAR HGB CONC 33.4 g/dl (32.0-36.5); MEAN CORPUSCULAR VOLUME 89.1 fl (80.0-96.0); MONO # 0.6 10^3/uL (0.0-0.8); MONO % 7.3 % (0.0-5.0); NEUTROPHILS # 4.9 10^3/uL (1.8-7.7); PLATELET COUNT, AUTOMATED 295 10^3/uL (150-450); RED BLOOD COUNT 5.04 10^6/uL (4.30-6.10); RED CELL DISTRIBUTION WIDTH 12.2 % (11.5-14.5); WHITE BLOOD COUNT 7.7 10^3/uL (4.0-10.0)
[2017-10-09] MEDS: NICOTINE 21MG/24HR 1 EA TRANSDERMAL TD (08:45)
[2017-10-09] MEDS: AMANTADINE 100 MG CAP PO ×2 (08:49→20:11)
[2017-10-09] MEDS: ESCITALOPRAM OXALATE 10 MG TAB (LEXAPRO) PO (08:49)
[2017-10-09] MEDS: cloNIDine 0.1 MG TAB PO ×2 (08:49→20:11)
[2017-10-09] MEDS: OLANZapine 5 MG TAB PO ×2 (08:49→20:10)
[2017-10-09] MEDS: INFLUENZA QUADRIVALENT PF VACCINE 0.5ML SYRINGE (90686) IM (08:50)
[2017-10-09] MEDS: ATORVASTATIN 20 MG TAB PO (20:11)
[2017-10-09] MEDS: hydrOXYzine 50 MG TAB PO (20:11)
[2017-10-09] MEDS: FENOFIBRATE 145 MG TAB (TRICOR) PO (20:11)
[2017-10-10] MEDS: ACYCLOVIR 5% OINT 15GM TOP ×5 (06:14→21:08)
[2017-10-10] MEDS: ESCITALOPRAM OXALATE 10 MG TAB (LEXAPRO) PO (08:35)
[2017-10-10] MEDS: NICOTINE 21MG/24HR 1 EA TRANSDERMAL TD (08:35)
[2017-10-10] MEDS: OLANZapine 5 MG TAB PO ×2 (08:35→21:06)
[2017-10-10] MEDS: cloNIDine 0.1 MG TAB PO ×2 (08:35→21:06)
[2017-10-10] MEDS: AMANTADINE 100 MG CAP PO ×2 (08:35→21:06)
[2017-10-10] MEDS: DIVALPROEX 500MG *ER* TAB PO (21:06)
[2017-10-10] MEDS: hydrOXYzine 50 MG TAB PO (21:06)
[2017-10-10] MEDS: FENOFIBRATE 145 MG TAB (TRICOR) PO (21:06)
[2017-10-10] MEDS: ATORVASTATIN 20 MG TAB PO (21:07)
[2017-10-11] MEDS: ACYCLOVIR 5% OINT 15GM TOP ×5 (06:11→20:39)
[2017-10-11] MEDS: NICOTINE 21MG/24HR 1 EA TRANSDERMAL TD (08:42)
[2017-10-11] MEDS: AMANTADINE 100 MG CAP PO ×2 (08:44→20:41)
[2017-10-11] MEDS: OLANZapine 5 MG TAB PO ×2 (08:44→20:41)
[2017-10-11] MEDS: cloNIDine 0.1 MG TAB PO ×2 (08:44→20:40)
[2017-10-11] MEDS: ESCITALOPRAM OXALATE 10 MG TAB (LEXAPRO) PO (08:44)
[2017-10-11] MEDS: DIVALPROEX 500MG *ER* TAB PO (20:39)
[2017-10-11] MEDS: hydrOXYzine 50 MG TAB PO (20:39)
[2017-10-11] MEDS: traZODone 50 MG TAB PO (20:39)
[2017-10-11] MEDS: FENOFIBRATE 145 MG TAB (TRICOR) PO (20:39)
[2017-10-11] MEDS: ATORVASTATIN 20 MG TAB PO (20:40)
[2017-10-12] MEDS: ACYCLOVIR 5% OINT 15GM TOP ×5 (06:00→20:26)
[2017-10-12] MEDS: NICOTINE 21MG/24HR 1 EA TRANSDERMAL TD (08:58)
[2017-10-12] MEDS: AMANTADINE 100 MG CAP PO ×2 (08:58→20:26)
[2017-10-12] MEDS: ESCITALOPRAM OXALATE 10 MG TAB (LEXAPRO) PO (08:59)
[2017-10-12] MEDS: OLANZapine 5 MG TAB PO ×2 (08:59→20:25)
[2017-10-12] MEDS: cloNIDine 0.1 MG TAB PO ×2 (08:59→20:26)
[2017-10-12] MEDS: hydrOXYzine 50 MG TAB PO (20:25)
[2017-10-12] MEDS: traZODone 50 MG TAB PO (20:25)
[2017-10-12] MEDS: DIVALPROEX 500MG *ER* TAB PO (20:25)
[2017-10-12] MEDS: ATORVASTATIN 20 MG TAB PO (20:25)
[2017-10-12] MEDS: FENOFIBRATE 145 MG TAB (TRICOR) PO (20:26)
[2017-10-13] MEDS: ACYCLOVIR 5% OINT 15GM TOP ×5 (05:58→20:54)
[2017-10-13] MEDS: ESCITALOPRAM OXALATE 10 MG TAB (LEXAPRO) PO (08:08)
[2017-10-13] MEDS: OLANZapine 5 MG TAB PO ×2 (08:08→20:54)
[2017-10-13] MEDS: AMANTADINE 100 MG CAP PO ×2 (08:08→20:54)
[2017-10-13] MEDS: NICOTINE 21MG/24HR 1 EA TRANSDERMAL TD (08:09)
[2017-10-13] MEDS: cloNIDine 0.1 MG TAB PO ×2 (08:09→20:54)
[2017-10-13] MEDS: hydrOXYzine 50 MG TAB PO (20:54)
[2017-10-13] MEDS: FENOFIBRATE 145 MG TAB (TRICOR) PO (20:54)
[2017-10-13] MEDS: ATORVASTATIN 20 MG TAB PO (20:54)
[2017-10-13] MEDS: traZODone 50 MG TAB PO (20:54)
[2017-10-13] MEDS: DIVALPROEX 500MG *ER* TAB PO (20:54)
[2017-10-14] MEDS: ACYCLOVIR 5% OINT 15GM TOP ×5 (05:46→20:27)
[2017-10-14] MEDS: OLANZapine 5 MG TAB PO ×2 (08:18→20:25)
[2017-10-14] MEDS: ESCITALOPRAM OXALATE 10 MG TAB (LEXAPRO) PO (08:18)
[2017-10-14] MEDS: cloNIDine 0.1 MG TAB PO ×2 (08:18→20:25)
[2017-10-14] MEDS: NICOTINE 21MG/24HR 1 EA TRANSDERMAL TD (08:19)
[2017-10-14] MEDS ORDERED: **PENDING PPD ENTRY XX (09:00)
[2017-10-14] MEDS: AMANTADINE 100 MG CAP PO ×2 (09:46→20:25)
[2017-10-14] MEDS: TUBERCULIN PPD 5 UNITS/0.1 ML ID (18:37)
[2017-10-14] MEDS: cloZAPine 25 MG TAB (S0136) PO (20:24)
[2017-10-14] MEDS: hydrOXYzine 50 MG TAB PO (20:24)
[2017-10-14] MEDS: FENOFIBRATE 145 MG TAB (TRICOR) PO (20:25)
[2017-10-14] MEDS: traZODone 50 MG TAB PO (20:25)
[2017-10-14] MEDS: ATORVASTATIN 20 MG TAB PO (20:25)
[2017-10-14] MEDS: DIVALPROEX 500MG *ER* TAB PO (20:25)
[2017-10-15] MEDS: ACYCLOVIR 5% OINT 15GM TOP ×5 (05:39→20:25)
[2017-10-15] MEDS: AMANTADINE 100 MG CAP PO ×2 (08:05→20:25)
[2017-10-15] MEDS: ESCITALOPRAM OXALATE 10 MG TAB (LEXAPRO) PO (08:05)
[2017-10-15] MEDS: OLANZapine 5 MG TAB PO (08:05)
[2017-10-15] MEDS: cloNIDine 0.1 MG TAB PO ×2 (08:05→20:25)
[2017-10-15] MEDS: NICOTINE 21MG/24HR 1 EA TRANSDERMAL TD (08:06)
[2017-10-15] MEDS ORDERED: TUBERCULIN PPD 5 UNITS/0.1 ML ID (10:00)
[2017-10-15] MEDS: cloZAPine 25 MG TAB (S0136) PO (20:23)
[2017-10-15] MEDS: hydrOXYzine 50 MG TAB PO (20:23)
[2017-10-15] MEDS: DIVALPROEX 500MG *ER* TAB PO (20:23)
[2017-10-15] MEDS: ATORVASTATIN 20 MG TAB PO (20:23)
[2017-10-15] MEDS: traZODone 50 MG TAB PO (20:23)
[2017-10-15] MEDS: FENOFIBRATE 145 MG TAB (TRICOR) PO (20:25)
[2017-10-16] MEDS: ACYCLOVIR 5% OINT 15GM TOP ×5 (06:17→20:55)
[2017-10-16] MEDS: cloNIDine 0.1 MG TAB PO ×2 (08:44→20:55)
[2017-10-16] MEDS: ESCITALOPRAM OXALATE 10 MG TAB (LEXAPRO) PO (08:44)
[2017-10-16] MEDS: AMANTADINE 100 MG CAP PO ×2 (08:46→20:55)
[2017-10-16] MEDS: OLANZapine 5 MG TAB PO (08:47)
[2017-10-16] MEDS: NICOTINE 21MG/24HR 1 EA TRANSDERMAL TD (08:49)
[2017-10-16] MEDS ORDERED: PPD DOCUMENTATION ENTRY MISC XX (10:00)
[2017-10-16] MEDS: PPD DOCUMENTATION ENTRY MISC XX (17:23)
[2017-10-16] MEDS: DIVALPROEX 500MG *ER* TAB PO (20:55)
[2017-10-16] MEDS: hydrOXYzine 50 MG TAB PO (20:55)
[2017-10-16] MEDS: FENOFIBRATE 145 MG TAB (TRICOR) PO (20:56)
[2017-10-16] MEDS: traZODone 50 MG TAB PO (20:56)
[2017-10-16] MEDS: cloZAPine 25 MG TAB (S0136) PO (20:56)
[2017-10-16] MEDS: ATORVASTATIN 20 MG TAB PO (20:56)
[2017-10-17] MEDS: ACYCLOVIR 5% OINT 15GM TOP ×5 (06:02→20:34)
[2017-10-17] MEDS: AMANTADINE 100 MG CAP PO ×2 (08:35→20:33)
[2017-10-17] MEDS: OLANZapine 5 MG TAB PO (08:35)
[2017-10-17] MEDS: ESCITALOPRAM OXALATE 10 MG TAB (LEXAPRO) PO (08:37)
[2017-10-17] MEDS: cloNIDine 0.1 MG TAB PO ×2 (08:37→20:33)
[2017-10-17] MEDS: NICOTINE 21MG/24HR 1 EA TRANSDERMAL TD (08:38)
[2017-10-17] MEDS: cloZAPine 100 MG TAB (S0136) PO (20:33)
[2017-10-17] MEDS: FENOFIBRATE 145 MG TAB (TRICOR) PO (20:33)
[2017-10-17] MEDS: hydrOXYzine 50 MG TAB PO (20:33)
[2017-10-17] MEDS: traZODone 50 MG TAB PO (20:34)
[2017-10-17] MEDS: DIVALPROEX 500MG *ER* TAB PO (20:34)
[2017-10-17] MEDS: ATORVASTATIN 20 MG TAB PO (20:34)
[2017-10-18] MEDS: ACYCLOVIR 5% OINT 15GM TOP ×5 (06:00→20:38)
[2017-10-18] MEDS: OLANZapine 5 MG TAB PO (08:03)
[2017-10-18] MEDS: cloNIDine 0.1 MG TAB PO ×2 (08:03→20:37)
[2017-10-18] MEDS: AMANTADINE 100 MG CAP PO ×2 (08:03→20:36)
[2017-10-18] MEDS: ESCITALOPRAM OXALATE 10 MG TAB (LEXAPRO) PO (08:03)
[2017-10-18] MEDS: NICOTINE 21MG/24HR 1 EA TRANSDERMAL TD (08:04)
[2017-10-18] MEDS: DIVALPROEX 500MG *ER* TAB PO (20:36)
[2017-10-18] MEDS: FENOFIBRATE 145 MG TAB (TRICOR) PO (20:36)
[2017-10-18] MEDS: cloZAPine 100 MG TAB (S0136) PO (20:37)
[2017-10-18] MEDS: ATORVASTATIN 20 MG TAB PO (20:37)
[2017-10-18] MEDS: traZODone 50 MG TAB PO (20:37)
[2017-10-19] MEDS: ACYCLOVIR 5% OINT 15GM TOP ×5 (05:59→20:56)
[2017-10-19] MEDS: ESCITALOPRAM OXALATE 10 MG TAB (LEXAPRO) PO (08:01)
[2017-10-19] MEDS: OLANZapine 5 MG TAB PO (08:01)
[2017-10-19] MEDS: cloNIDine 0.1 MG TAB PO ×2 (08:01→20:56)
[2017-10-19] MEDS: AMANTADINE 100 MG CAP PO ×2 (08:01→20:56)
[2017-10-19] MEDS: NICOTINE 21MG/24HR 1 EA TRANSDERMAL TD (08:02)
[2017-10-19] MEDS: cloZAPine 100 MG TAB (S0136) PO (20:55)
[2017-10-19] MEDS: FENOFIBRATE 145 MG TAB (TRICOR) PO (20:55)
[2017-10-19] MEDS: DIVALPROEX 500MG *ER* TAB PO (20:55)
[2017-10-19] MEDS: hydrOXYzine 50 MG TAB PO (20:55)
[2017-10-19] MEDS: ATORVASTATIN 20 MG TAB PO (20:55)
[2017-10-19] MEDS: traZODone 50 MG TAB PO (20:55)
[2017-10-20] MEDS: ACYCLOVIR 5% OINT 15GM TOP ×5 (06:07→21:25)
[2017-10-20] MEDS: AMANTADINE 100 MG CAP PO ×2 (08:20→21:23)
[2017-10-20] MEDS: ESCITALOPRAM OXALATE 10 MG TAB (LEXAPRO) PO (08:21)
[2017-10-20] MEDS: cloNIDine 0.1 MG TAB PO ×2 (08:21→21:23)
[2017-10-20] MEDS: OLANZapine 5 MG TAB PO (08:21)
[2017-10-20] MEDS: NICOTINE 21MG/24HR 1 EA TRANSDERMAL TD (09:00)
[2017-10-20] MEDS: FENOFIBRATE 145 MG TAB (TRICOR) PO (21:23)
[2017-10-20] MEDS: hydrOXYzine 50 MG TAB PO (21:23)
[2017-10-20] MEDS: ATORVASTATIN 20 MG TAB PO (21:23)
[2017-10-20] MEDS: traZODone 50 MG TAB PO (21:23)
[2017-10-20] MEDS: cloZAPine 100 MG TAB (S0136) PO (21:23)
[2017-10-20] MEDS: DIVALPROEX 500MG *ER* TAB PO (21:23)
[2017-10-21] MEDS: ACYCLOVIR 5% OINT 15GM TOP ×5 (06:16→21:00)
[2017-10-21] MEDS: NICOTINE 21MG/24HR 1 EA TRANSDERMAL TD (08:17)
[2017-10-21] MEDS: OLANZapine 5 MG TAB PO (08:20)
[2017-10-21] MEDS: AMANTADINE 100 MG CAP PO ×2 (08:20→21:05)
[2017-10-21] MEDS: cloNIDine 0.1 MG TAB PO ×2 (08:20→21:06)
[2017-10-21] MEDS: ESCITALOPRAM OXALATE 10 MG TAB (LEXAPRO) PO (08:20)
[2017-10-21] MEDS: ATORVASTATIN 20 MG TAB PO (21:06)
[2017-10-21] MEDS: FENOFIBRATE 145 MG TAB (TRICOR) PO (21:06)
[2017-10-21] MEDS: cloZAPine 100 MG TAB (S0136) PO (21:06)
[2017-10-21] MEDS: hydrOXYzine 50 MG TAB PO (21:07)
[2017-10-21] MEDS: traZODone 50 MG TAB PO (21:07)
[2017-10-21] MEDS: DIVALPROEX 500MG *ER* TAB PO (21:07)
[2017-10-22] MEDS: ACYCLOVIR 5% OINT 15GM TOP ×5 (05:15→20:37)
[2017-10-22] MEDS: OLANZapine 5 MG TAB PO (08:32)
[2017-10-22] MEDS: NICOTINE 21MG/24HR 1 EA TRANSDERMAL TD (08:32)
[2017-10-22] MEDS: cloNIDine 0.1 MG TAB PO (08:32)
[2017-10-22] MEDS: AMANTADINE 100 MG CAP PO ×2 (08:32→20:39)
[2017-10-22] MEDS: ESCITALOPRAM OXALATE 10 MG TAB (LEXAPRO) PO (08:32)
[2017-10-22] MEDS: FENOFIBRATE 145 MG TAB (TRICOR) PO (20:39)
[2017-10-22] MEDS: DIVALPROEX 250MG *ER* TAB PO (20:40)
[2017-10-22] MEDS: cloZAPine 100 MG TAB (S0136) PO (20:41)
[2017-10-22] MEDS: traZODone 50 MG TAB PO (20:42)
[2017-10-22] MEDS: hydrOXYzine 50 MG TAB PO (20:42)
[2017-10-22] MEDS: ATORVASTATIN 20 MG TAB PO (20:42)
[2017-10-23] MEDS: ACYCLOVIR 5% OINT 15GM TOP ×5 (05:49→21:00)
[2017-10-23] MEDS: NICOTINE 21MG/24HR 1 EA TRANSDERMAL TD (08:27)
[2017-10-23] MEDS: AMANTADINE 100 MG CAP PO ×2 (08:28→20:24)
[2017-10-23] MEDS: ESCITALOPRAM OXALATE 10 MG TAB (LEXAPRO) PO (08:28)
[2017-10-23] MEDS: hydrOXYzine 50 MG TAB PO (20:24)
[2017-10-23] MEDS: FENOFIBRATE 145 MG TAB (TRICOR) PO (20:24)
[2017-10-23] MEDS: traZODone 50 MG TAB PO (20:25)
[2017-10-23] MEDS: ATORVASTATIN 20 MG TAB PO (20:25)
[2017-10-23] MEDS: DIVALPROEX 250MG *ER* TAB PO (20:25)
[2017-10-23] MEDS: cloZAPine 100 MG TAB (S0136) PO (20:25)
[2017-10-24] MEDS: ACYCLOVIR 5% OINT 15GM TOP ×5 (05:13→21:00)
[2017-10-24 08:06] LABS: CLOZAPINE 1 36 ng/mL (350-650); CLOZAPINE 2 None Detected (Not Estab.)
[2017-10-24] MEDS: ESCITALOPRAM OXALATE 10 MG TAB (LEXAPRO) PO (08:41)
[2017-10-24] MEDS: AMANTADINE 100 MG CAP PO ×2 (08:41→21:41)
[2017-10-24] MEDS: NICOTINE 21MG/24HR 1 EA TRANSDERMAL TD (08:41)
[2017-10-24] MEDS ORDERED: NON-FORMULARY COMPOUNDED MEDICATION IM (09:00)
[2017-10-24] MEDS: INVEGA TRINZA IM (18:13)
[2017-10-24] MEDS: cloZAPine 100 MG TAB (S0136) PO (21:41)
[2017-10-24] MEDS: hydrOXYzine 50 MG TAB PO (21:41)
[2017-10-24] MEDS: FENOFIBRATE 145 MG TAB (TRICOR) PO (21:42)
[2017-10-24] MEDS: ATORVASTATIN 20 MG TAB PO (21:42)
[2017-10-24] MEDS: traZODone 50 MG TAB PO (23:01)
[2017-10-25] MEDS: ACYCLOVIR 5% OINT 15GM TOP ×5 (05:09→20:14)
[2017-10-25] MEDS: NICOTINE 21MG/24HR 1 EA TRANSDERMAL TD (08:48)
[2017-10-25] MEDS: ESCITALOPRAM OXALATE 10 MG TAB (LEXAPRO) PO (08:50)
[2017-10-25] MEDS: AMANTADINE 100 MG CAP PO ×2 (08:50→20:55)
[2017-10-25] MEDS: ATORVASTATIN 20 MG TAB PO (20:55)
[2017-10-25] MEDS: traZODone 50 MG TAB PO (20:55)
[2017-10-25] MEDS: hydrOXYzine 50 MG TAB PO (20:55)
[2017-10-25] MEDS: FENOFIBRATE 145 MG TAB (TRICOR) PO (20:55)
[2017-10-25] MEDS: cloZAPine 100 MG TAB (S0136) PO (20:55)
[2017-10-26] MEDS: ACYCLOVIR 5% OINT 15GM TOP ×5 (05:06→20:56)
[2017-10-26] MEDS: NICOTINE 21MG/24HR 1 EA TRANSDERMAL TD (08:51)
[2017-10-26] MEDS: AMANTADINE 100 MG CAP PO ×2 (08:51→20:16)
[2017-10-26] MEDS: ESCITALOPRAM OXALATE 10 MG TAB (LEXAPRO) PO (08:51)
[2017-10-26] MEDS: traZODone 50 MG TAB PO (20:16)
[2017-10-26] MEDS: hydrOXYzine 50 MG TAB PO (20:16)
[2017-10-26] MEDS: cloZAPine 100 MG TAB (S0136) PO (20:16)
[2017-10-26] MEDS: ATORVASTATIN 20 MG TAB PO (20:16)
[2017-10-26] MEDS: FENOFIBRATE 145 MG TAB (TRICOR) PO (20:16)
[2017-10-27] MEDS: ACYCLOVIR 5% OINT 15GM TOP ×5 (05:17→21:00)
[2017-10-27] MEDS: AMANTADINE 100 MG CAP PO ×2 (08:20→20:58)
[2017-10-27] MEDS: ESCITALOPRAM OXALATE 10 MG TAB (LEXAPRO) PO (08:20)
[2017-10-27] MEDS: hydrOXYzine 50 MG TAB PO (20:58)
[2017-10-27] MEDS: FENOFIBRATE 145 MG TAB (TRICOR) PO (20:58)
[2017-10-27] MEDS: traZODone 50 MG TAB PO (20:58)
[2017-10-27] MEDS: cloZAPine 100 MG TAB (S0136) PO (20:58)
[2017-10-27] MEDS: ATORVASTATIN 20 MG TAB PO (20:58)
[2017-10-28] MEDS: ACYCLOVIR 5% OINT 15GM TOP ×5 (05:12→20:22)
[2017-10-28] MEDS: AMANTADINE 100 MG CAP PO ×2 (09:31→20:21)
[2017-10-28] MEDS: ESCITALOPRAM OXALATE 10 MG TAB (LEXAPRO) PO (09:31)
[2017-10-28] MEDS: traZODone 50 MG TAB PO (20:21)
[2017-10-28] MEDS: FENOFIBRATE 145 MG TAB (TRICOR) PO (20:21)
[2017-10-28] MEDS: cloZAPine 100 MG TAB (S0136) PO (20:21)
[2017-10-28] MEDS: hydrOXYzine 50 MG TAB PO (20:21)
[2017-10-28] MEDS: ATORVASTATIN 20 MG TAB PO (20:21)
[2017-10-29] MEDS: ACYCLOVIR 5% OINT 15GM TOP ×5 (06:01→20:34)
[2017-10-29] MEDS: AMANTADINE 100 MG CAP PO ×2 (08:14→20:35)
[2017-10-29] MEDS: ESCITALOPRAM OXALATE 10 MG TAB (LEXAPRO) PO (08:14)
[2017-10-29] MEDS: BACITRACIN OINT 30GM TOP ×2 (14:32→20:35)
[2017-10-29] MEDS: hydrOXYzine 50 MG TAB PO (20:35)
[2017-10-29] MEDS: FENOFIBRATE 145 MG TAB (TRICOR) PO (20:35)
[2017-10-29] MEDS: cloZAPine 100 MG TAB (S0136) PO (20:35)
[2017-10-29] MEDS: traZODone 50 MG TAB PO (20:35)
[2017-10-29] MEDS: ATORVASTATIN 20 MG TAB PO (20:35)
[2017-10-30 00:06] LABS: CLOZAPINE 1 163 ng/mL (350-650); CLOZAPINE 2 64 ng/mL (Not Estab.); CLOZAPINE 3 227 ng/mL (.)
[2017-10-30] MEDS: ACYCLOVIR 5% OINT 15GM TOP ×5 (06:33→20:56)
[2017-10-30] MEDS: BACITRACIN OINT 30GM TOP ×3 (09:57→21:45)
[2017-10-30] MEDS: ESCITALOPRAM OXALATE 10 MG TAB (LEXAPRO) PO (09:58)
[2017-10-30] MEDS: AMANTADINE 100 MG CAP PO ×2 (09:58→20:57)
[2017-10-30] MEDS: OLANZapine 2.5MG TABLET PO (12:06)
[2017-10-30] MEDS: cloZAPine 100 MG TAB (S0136) PO (20:57)
[2017-10-30] MEDS: ATORVASTATIN 20 MG TAB PO (20:57)
[2017-10-30] MEDS: FENOFIBRATE 145 MG TAB (TRICOR) PO (20:57)
[2017-10-30] MEDS: traZODone 50 MG TAB PO (20:58)
[2017-10-30] MEDS: hydrOXYzine 50 MG TAB PO (20:58)
[2017-10-31] MEDS: ACYCLOVIR 5% OINT 15GM TOP ×5 (05:58→21:00)
[2017-10-31] MEDS: BACITRACIN OINT 30GM TOP ×2 (08:37→21:20)
[2017-10-31] MEDS: OLANZapine 2.5MG TABLET PO (08:40)
[2017-10-31] MEDS: ESCITALOPRAM OXALATE 10 MG TAB (LEXAPRO) PO (08:40)
[2017-10-31] MEDS: AMANTADINE 100 MG CAP PO ×2 (08:41→21:20)
[2017-10-31 13:29] LABS: BASO # 0.1 10^3/uL (0.0-0.2); BASO % 1.1 % (0.0-1.0); EOS # 0.3 10^3/uL (0.0-0.50); EOS % 3.9 % (0.0-3.0); HEMATOCRIT 40.9 % (42.0-52.0); IMMATURE GRANULOCYTE # 0.1 10^3/uL (0-0); IMMATURE GRANULOCYTE % 1.1 % (0-0); LYMPH # 1.7 10^3/uL (1.5-6.5); LYMPH % 25.3 % (24.0-44.0); MEAN CORPUSCULAR HEMOGLOBIN 30.1 pg (27.0-33.0); MEAN CORPUSCULAR HGB CONC 34.2 g/dl (32.0-36.5); MONO # 0.5 10^3/uL (0.0-0.8); NEUTROPHILS # 4.1 10^3/uL (1.8-7.7); NEUTROPHILS % 61.6 % (36.0-66.0); PLATELET COUNT, AUTOMATED 241 10^3/uL (150-450); RED BLOOD COUNT 4.65 10^6/uL (4.30-6.10); RED CELL DISTRIBUTION WIDTH 12.1 % (11.5-14.5); WHITE BLOOD COUNT 6.6 10^3/uL (4.0-10.0)
[2017-10-31] MEDS: FENOFIBRATE 145 MG TAB (TRICOR) PO (21:20)
[2017-10-31] MEDS: ATORVASTATIN 20 MG TAB PO (21:20)
[2017-10-31] MEDS: cloZAPine 100 MG TAB (S0136) PO (21:20)
[2017-10-31] MEDS: hydrOXYzine 50 MG TAB PO (21:20)
[2017-10-31] MEDS: traZODone 50 MG TAB PO (21:20)
[2017-11-01] MEDS: ACYCLOVIR 5% OINT 15GM TOP ×5 (06:00→21:27)
[2017-11-01] MEDS: AMANTADINE 100 MG CAP PO ×2 (09:08→21:25)
[2017-11-01] MEDS: BACITRACIN OINT 30GM TOP ×2 (09:08→21:27)
[2017-11-01] MEDS: ESCITALOPRAM OXALATE 10 MG TAB (LEXAPRO) PO (09:08)
[2017-11-01] MEDS: OLANZapine 2.5MG TABLET PO (09:08)
[2017-11-01] MEDS: hydrOXYzine 50 MG TAB PO (21:24)
[2017-11-01] MEDS: FENOFIBRATE 145 MG TAB (TRICOR) PO (21:25)
[2017-11-01] MEDS: cloZAPine 100 MG TAB (S0136) PO (21:25)
[2017-11-01] MEDS: ATORVASTATIN 20 MG TAB PO (21:25)
[2017-11-01] MEDS: traZODone 50 MG TAB PO (21:25)
[2017-11-02] MEDS: ACYCLOVIR 5% OINT 15GM TOP ×5 (06:01→21:52)
[2017-11-02] MEDS: OLANZapine 2.5MG TABLET PO (08:09)
[2017-11-02] MEDS: AMANTADINE 100 MG CAP PO ×2 (08:09→21:46)
[2017-11-02] MEDS: ESCITALOPRAM OXALATE 10 MG TAB (LEXAPRO) PO (08:09)
[2017-11-02] MEDS: BACITRACIN OINT 30GM TOP ×2 (08:10→21:52)
[2017-11-02] MEDS: traZODone 50 MG TAB PO (21:46)
[2017-11-02] MEDS: FENOFIBRATE 145 MG TAB (TRICOR) PO (21:46)
[2017-11-02] MEDS: ATORVASTATIN 20 MG TAB PO (21:46)
[2017-11-02] MEDS: hydrOXYzine 50 MG TAB PO (21:46)
[2017-11-02] MEDS: cloZAPine 100 MG TAB (S0136) PO (21:47)
[2017-11-03] MEDS: ACYCLOVIR 5% OINT 15GM TOP ×5 (06:20→21:08)
[2017-11-03] MEDS: BACITRACIN OINT 30GM TOP ×2 (09:00→21:09)
[2017-11-03] MEDS: ESCITALOPRAM OXALATE 10 MG TAB (LEXAPRO) PO (09:11)
[2017-11-03] MEDS: OLANZapine 2.5MG TABLET PO (09:11)
[2017-11-03] MEDS: AMANTADINE 100 MG CAP PO ×2 (09:11→21:07)
[2017-11-03] MEDS: FENOFIBRATE 145 MG TAB (TRICOR) PO (21:07)
[2017-11-03] MEDS: ATORVASTATIN 20 MG TAB PO (21:08)
[2017-11-03] MEDS: cloZAPine 100 MG TAB (S0136) PO (21:09)
[2017-11-03] MEDS: traZODone 50 MG TAB PO (21:10)
[2017-11-03] MEDS: hydrOXYzine 50 MG TAB PO (21:10)
[2017-11-04] MEDS: ACYCLOVIR 5% OINT 15GM TOP ×4 (05:09→16:39)
[2017-11-04] MEDS: AMANTADINE 100 MG CAP PO (08:50)
[2017-11-04] MEDS: ESCITALOPRAM OXALATE 10 MG TAB (LEXAPRO) PO (08:50)
[2017-11-04] MEDS: BACITRACIN OINT 30GM TOP (08:51)
[2017-11-04] MEDS: OLANZapine 2.5MG TABLET PO (10:06)
== END 2017-11-04 18:15 | DRG 750 ==
LOC: M ED 16:25 → M ED INP 19:48 → M PSY 21:05
DX: F25.0 Schizoaffective disorder, bipolar type (principal); F14.10 Cocaine abuse, uncomplicated; F12.10 Cannabis abuse, uncomplicated; F17.210 Nicotine dependence, cigarettes, uncomplicated; B00.1 Herpesviral vesicular dermatitis; E78.5 Hyperlipidemia, unspecified; Z79.899 Other long term (current) drug therapy; Z91.5 Personal history of self-harm; Z88.2 Allergy status to sulfonamides; Z88.1 Allergy status to other antibiotic agents

== ENCOUNTER → 2017-12-24 | Outpatient (CLI) | payer MEDICAID, OTHER ==
[2017-12-24 13:05] LABS: BASO # 0.1 10^3/uL (0.0-0.2); BASO % 0.5 % (0.0-1.0); EOS # 0.2 10^3/uL (0.0-0.50); EOS % 2.2 % (0.0-3.0); HEMATOCRIT 41.2 % (42.0-52.0); HEMOGLOBIN 14.1 g/dl (14.0-18.0); IMMATURE GRANULOCYTE % 0.4 % (0-3.0); LYMPH # 1.6 10^3/uL (1.5-6.5); LYMPH % 16.6 % (24.0-44.0); MEAN CORPUSCULAR HEMOGLOBIN 29.4 pg (27.0-33.0); MEAN CORPUSCULAR HGB CONC 34.2 g/dl (32.0-36.5); MEAN CORPUSCULAR VOLUME 85.8 fl (80.0-96.0); MONO # 0.5 10^3/uL (0.0-0.8); MONO % 5.2 % (0.0-5.0); NEUTROPHILS % 75.1 % (36.0-66.0); PLATELET COUNT, AUTOMATED 259 10^3/uL (150-450); RED CELL DISTRIBUTION WIDTH 11.7 % (11.5-14.5); WHITE BLOOD COUNT 9.3 10^3/uL (4.0-10.0)
== END ==
LOC: M LAB 12:40
DX: Z51.81 Encounter for therapeutic drug level monitoring (principal); Z79.899 Other long term (current) drug therapy
CPT/HCPCS: 85025

== ENCOUNTER → 2018-01-02 | Outpatient (CLI) | payer MEDICAID ==
[2018-01-02 17:35] LABS: BASO % 0.7 % (0.0-1.0); EOS # 0.2 10^3/uL (0.0-0.50); EOS % 3.1 % (0.0-3.0); HEMATOCRIT 42.9 % (42.0-52.0); HEMOGLOBIN 14.6 g/dl (14.0-18.0); IMMATURE GRANULOCYTE % 0.2 % (0-3.0); LYMPH # 1.7 10^3/uL (1.5-6.5); LYMPH % 31.6 % (24.0-44.0); MEAN CORPUSCULAR HEMOGLOBIN 29.1 pg (27.0-33.0); MEAN CORPUSCULAR VOLUME 85.5 fl (80.0-96.0); MONO # 0.4 10^3/uL (0.0-0.8); MONO % 6.4 % (0.0-5.0); NEUTROPHILS # 3.2 10^3/uL (1.8-7.7); PLATELET COUNT, AUTOMATED 256 10^3/uL (150-450); RED BLOOD COUNT 5.02 10^6/uL (4.30-6.10); RED CELL DISTRIBUTION WIDTH 11.9 % (11.5-14.5); WHITE BLOOD COUNT 5.4 10^3/uL (4.0-10.0)
== END ==
LOC: M LAB 16:35
DX: F20.0 Paranoid schizophrenia (principal)
CPT/HCPCS: 85027

== ENCOUNTER → 2018-02-23 | Outpatient (CLI) | payer OTHER | LOC: M LAB 15:54 | DX: F20.9 Schizophrenia, unspecified (principal); Z79.891 Long term (current) use of opiate analgesic ==

== ENCOUNTER 2018-05-18 09:43 | Emergency (ER) | payer OTHER | END 2018-05-18 10:12 | disposition home or self-care (01) | LOC: M ED 09:43 | DX: H10.9 Unspecified conjunctivitis (principal); Z79.899 Other long term (current) drug therapy; Z88.2 Allergy status to sulfonamides; F17.210 Nicotine dependence, cigarettes, uncomplicated | CPT/HCPCS: 99283 ==

== ENCOUNTER → 2019-03-13 | Outpatient (REF) | payer OTHER, MEDICAID ==
[~2019-03-13] MED LIST changes: -/OL10DISTA PO; -/QUET10TA PO; -ACET50TA PO; +AMAN100C18 PO; +ATOR1TAB21; +CIPR0.3S OP; +CLON-412; +CLON-412 PO; +CLONI1TA PO; +CLOZ200T PO; +DEPA250T2 PO; +DIVA500T9 PO; +FENO145T13 PO; +HYDR50TA70; +HYDR50TA70 PO; +HYDRO50TAB PO; +LEXA5TAB13; +LEXA5TAB13 PO; +LIPI20TA PO; +MAPA500T17 PO; +METF10004 PO; +NICO21PAT TD; +OLAN15TA PO; +OLAN5TAB PO; +OLAN5ZYD PO; +PROP20TA72 PO; +QUET1TAB8 PO; +SERO1TAB PO; +TRAZ-160 PO; -TRAZ50TA11 PO; +TRAZO50TA PO; +VITA100066 PO; +VITMTA PO; +ZYPR1TAB4 PO
[2019-03-13 18:36] LABS: BASO # 0.1 10^3/uL (0.0-0.2); BASO % 0.7 % (0.0-1.0); EOS # 0.2 10^3/uL (0.0-0.50); EOS % 2.7 % (0.0-3.0); HEMATOCRIT 43.1 % (42.0-52.0); HEMOGLOBIN 14.9 g/dl (13.5-17.5); LYMPH # 1.9 10^3/uL (1.5-6.5); LYMPH % 22.7 % (24.0-44.0); MEAN CORPUSCULAR HEMOGLOBIN 30.4 pg (27.0-33.0); MEAN CORPUSCULAR HGB CONC 34.6 g/dl (32.0-36.5); MONO # 0.5 10^3/uL (0.0-0.8); MONO % 6.2 % (0.0-5.0); NEUTROPHILS # 5.5 10^3/uL (1.8-7.7); NEUTROPHILS % 67.3 % (36.0-66.0); PLATELET COUNT, AUTOMATED 272 10^3/uL (150-450); WHITE BLOOD COUNT 8.2 10^3/uL (4.0-10.0)
[2019-03-13 18:48] LABS: ALBUMIN 4.2 GM/DL (3.2-5.2); ALT/SGPT 27 U/L (12-78); BILIRUBIN,TOTAL 0.4 MG/DL (0.2-1.0); BLOOD UREA NITROGEN 10 MG/DL (7-18); CALCIUM LEVEL 8.6 MG/DL (8.5-10.1); CARBON DIOXIDE LEVEL 29 MEQ/L (21-32); CHLORIDE LEVEL 107 MEQ/L (98-107); CHOLESTEROL LEVEL 174 MG/DL (<200); CHOLESTEROL RISK RATIO 6.444 (<5); CREATININE FOR GFR 1.03 MG/DL (0.70-1.30); FREE T4 1.09 NG/DL (0.76-1.46); GLOMERULAR FILTRATION RATE > 60.0 (>60); GLUCOSE, FASTING 110 MG/DL (70-100); HDL CHOLESTEROL 27 MG/DL (>40); LDL CHOLESTEROL 84 MG/DL (<100); NON-HDL-C 147 MG/DL; POTASSIUM SERUM 3.9 MEQ/L (3.5-5.1); SODIUM LEVEL 140 MEQ/L (136-145); TOTAL PROTEIN 6.9 GM/DL (6.4-8.2); TRIGLYCERIDES LEVEL 316 MG/DL (<150)
[2019-03-13 18:50] LABS: TOTAL 25(OH) VITAMIN D 14.4 NG/ML (30.0-100.0)
[2019-03-13 18:52] LABS: HEMOGLOBIN A1c 5.8 %
[2019-03-17 00:06] LABS: Lyme Disease IgG/IgM Antibodie <0.91 ISR (0.00-0.90); Lyme Disease IgM Ab Quantitati <0.80 index (0.00-0.79)
== END ==
LOC: M LAB REF 17:58
PROVIDERS: ATTEND Family Medicine
DX: Z13.228 Encounter for screening for other metabolic disorders (principal)

== ENCOUNTER → 2019-06-19 | Outpatient (REF) | payer OTHER, MEDICAID ==
[~2019-06-19] MED LIST changes: +HYDR1TAB33 PO; -HYDRO50TAB PO; -TRAZ-160 PO; +TRAZ-252 PO; +TRAZ1TAB10 PO; -TRAZO50TA PO
[2019-06-19 19:06] LABS: ALBUMIN 4.3 GM/DL (3.2-5.2); ALT/SGPT 29 U/L (12-78); BILIRUBIN,TOTAL 0.3 MG/DL (0.2-1.0); BLOOD UREA NITROGEN 12 MG/DL (7-18); CALCIUM LEVEL 9.5 MG/DL (8.5-10.1); CARBON DIOXIDE LEVEL 27 MEQ/L (21-32); CHLORIDE LEVEL 109 MEQ/L (98-107); CREATININE FOR GFR 0.82 MG/DL (0.70-1.30); GLOMERULAR FILTRATION RATE > 60.0 (>60); GLUCOSE, FASTING 91 MG/DL (70-100); POTASSIUM SERUM 4.4 MEQ/L (3.5-5.1); SODIUM LEVEL 140 MEQ/L (136-145); TOTAL PROTEIN 7.4 GM/DL (6.4-8.2)
[2019-06-19 19:29] LABS: HEMOGLOBIN A1c 6.4 %
== END ==
LOC: M LAB REF 14:54
PROVIDERS: ATTEND Family Medicine
DX: R73.03 Prediabetes (principal)

== ENCOUNTER → 2019-09-02 | Outpatient (REF) | payer OTHER, MEDICAID ==
[2019-09-02 17:30] LABS: ALBUMIN 4.2 GM/DL (3.2-5.2); ALT/SGPT 51 U/L (12-78); BILIRUBIN,TOTAL 0.5 MG/DL (0.2-1.0); BLOOD UREA NITROGEN 9 MG/DL (7-18); CALCIUM LEVEL 9.1 MG/DL (8.5-10.1); CARBON DIOXIDE LEVEL 26 MEQ/L (21-32); CHLORIDE LEVEL 107 MEQ/L (98-107); CREATININE FOR GFR 0.87 MG/DL (0.70-1.30); GLOMERULAR FILTRATION RATE > 60.0 (>60); GLUCOSE, FASTING 107 MG/DL (70-100); POTASSIUM SERUM 4.5 MEQ/L (3.5-5.1); SODIUM LEVEL 138 MEQ/L (136-145); TOTAL PROTEIN 7.4 GM/DL (6.4-8.2)
[2019-09-02 17:43] LABS: HEMOGLOBIN A1c 5.7 %
== END ==
LOC: M LAB REF 16:40
PROVIDERS: ATTEND Family Medicine
DX: R73.03 Prediabetes (principal)

== ENCOUNTER 2019-09-14 13:02 | Emergency (ER) | payer MEDICAID, OTHER ==
[~2019-09-14] VITALS: Ht 170.2 cm; Wt 106.8 kg
[2019-09-14 13:16] VITALS: BP 178/101
== END 2019-09-14 14:23 | disposition left against medical advice (07) ==
LOC: M ED 13:02
DX: Z53.21 Procedure and treatment not carried out due to patient leaving prior to being seen by health care provider (principal)

== ENCOUNTER → 2019-11-30 | Outpatient (REF) | payer OTHER ==
[~2019-11-30] MED LIST changes: -FENO145T13 PO; +FENO145T7 PO
[2019-11-30 17:43] LABS: ALBUMIN 4.5 GM/DL (3.2-5.2); ALT/SGPT 28 U/L (12-78); BILIRUBIN,TOTAL 0.4 MG/DL (0.2-1.0); BLOOD UREA NITROGEN 11 MG/DL (7-18); CALCIUM LEVEL 9.3 MG/DL (8.5-10.1); CARBON DIOXIDE LEVEL 26 MEQ/L (21-32); CHLORIDE LEVEL 106 MEQ/L (98-107); GLOMERULAR FILTRATION RATE > 60.0 (>60); GLUCOSE, FASTING 92 MG/DL (70-100); POTASSIUM SERUM 4.2 MEQ/L (3.5-5.1); SODIUM LEVEL 139 MEQ/L (136-145)
[2019-11-30 17:48] LABS: TOTAL 25(OH) VITAMIN D 21.8 NG/ML (30.0-100.0)
[2019-11-30 18:02] LABS: HEMOGLOBIN A1c 6.1 %
== END ==
LOC: M LAB REF 16:27
PROVIDERS: ATTEND Physician Assistant
DX: E55.9 Vitamin D deficiency, unspecified (principal); R73.03 Prediabetes

== ENCOUNTER 2020-06-06 16:50 | Inpatient (IN) | payer OTHER ==
[~2020-06-06 16:50] MED LIST changes: -CIPR0.3S OP; +CIPR0.3S6 OP; +QUET100T2 PO; -QUET1TAB8 PO
[2020-06-07] MEDS ORDERED: haloperidoL 5 MG TAB As Ordered ONE (21:06)
[2020-06-07] MEDS ORDERED: traZODone 50 MG TAB As Ordered ONE (21:07)
[2020-06-08] MEDS ORDERED: traZODone 50 MG TAB As Ordered ONE (20:07)
[2020-06-08] MEDS ORDERED: haloperidoL 5 MG TAB As Ordered ONE (20:07)
[2020-06-09] MEDS ORDERED: haloperidoL 5 MG TAB As Ordered ONE ×2 (08:30→20:20)
[2020-06-09] MEDS ORDERED: traZODone 50 MG TAB As Ordered ONE (20:20)
[2020-06-10] MEDS ORDERED: haloperidoL 5 MG TAB As Ordered ONE (08:36)
[2020-07-21 10:20] LABS: BASO # 0.1 10^3/uL (0.0-0.2); BASO % 0.6 % (0.0-1.0); EOS # 0.2 10^3/uL (0.0-0.5); EOS % 1.8 % (0.0-3.0); HEMATOCRIT 48.7 % (42.0-52.0); HEMOGLOBIN 16.8 g/dl (13.5-17.5); LYMPH # 1.9 10^3/uL (1.5-5.0); LYMPH % 20.6 % (24.0-44.0); MEAN CORPUSCULAR HEMOGLOBIN 30.8 pg (27.0-33.0); MEAN CORPUSCULAR HGB CONC 34.5 g/dl (32.0-36.5); MEAN CORPUSCULAR VOLUME 89.2 fl (80.0-96.0); MONO # 0.6 10^3/uL (0.0-0.8); NEUTROPHILS # 6.7 10^3/uL (1.5-8.5); NEUTROPHILS % 70.7 % (36.0-66.0); PLATELET COUNT, AUTOMATED 259 10^3/uL (150-450); RED BLOOD COUNT 5.46 10^6/uL (4.30-6.10); WHITE BLOOD COUNT 9.4 10^3/uL (4.0-10.0)
--- NOTE | 2020-08-05 14:13 | MHDS ---
DATE OF ADMISSION: 06/06/2020 DATE OF DISCHARGE: 06/10/2020 DISCHARGE DIAGNOSIS: Schizophrenia disorder. DISCHARGE MEDICATIONS: Haldol 10 mg at bedtime. Patient has reported being extremely drowsy and was initially prescribed Haldol 5 mg at bedtime, then increased to 5 mg twice a day. He had reported drowsiness, and on his discharge he is being sent home with Haldol 10 mg. He has knowledge of this and understands that he will need to be compliant. A paper prescription was given to the patient at the time of his discharge. ACTIVITY: As tolerated. DIET: Regular. DISPOSITION: Patient is being discharged to home, where he resides with his girlfriend. She believes he is safe for discharge and has no concerns. FOLLOWUP CARE: Patient is following up with [facility] and [facility]. For labs, consultations, procedures, please see hospitalist consultation report dated 06/07/2020. BRIEF REASON FOR ADMISSION: Patient is a 29-year-old single, disabled male who was encouraged to come to the emergency department after reporting to his girlfriend increased auditory hallucinations for the past few weeks. He states that they were driving him "crazy," and it was affecting his relationship with the girlfriend. He stated that he had been here and admitted to the hospital 10 times and did not want to come, but that his girlfriend encouraged him, and he states that he was hearing these voices that were increasing and very derogatory to him. They were calling him names. He was admitted to inpatient mental health for stabilization. COURSE OF TREATMENT: Patient has been admitted to psychiatry at least 10 times with his last hospitalization being 2 years ago. He has been seen by [facility]. Had previously intramuscular (IM) injection 3 months ago but stated he did not want the long-acting injectable on this admission. Patient was started on Haldol, and he reported a significant decrease in auditory hallucinations but continued to hear them. We discussed an increase in Haldol to twice daily. He reported that the Haldol eliminated the voices but also caused him to be very drowsy. He is requesting to be discharged, as he feels he safe. I reviewed with the patient medications dose, time, frequency, and route, including side effects. He verbalized understanding and maintained that he will be compliant. At this time, I reviewed with him possibility of extrapyramidal symptoms. I then gave him another prescription for Cogentin 0.5 mg twice daily as needed for extrapyramidal symptoms (EPS). MENTAL STATUS EXAMINATION: Patient is a single, disabled male, 29 years old. He appears his stated age. He was admitted for auditory hallucinations. His hygiene and grooming are fair to good. He makes good eye contact, and his speech is normal rate, tone, and volume. He denies suicidal and homicidal ideation, planning, or intent. He is not observed and denies psychosis, delusions, odessa, obsessions, paranoia. He denies depression and anxiety at this time. States he is mildly excited about retiring home. He denies racing thoughts. Patient is alert and oriented to person, place, time, and situation. His memory is intact. His cognition and intellectual functioning are congruent with his education. Judgment and insight are fair to good. Patient is psychiatrically stable, and he met the criteria by the treatment team for discharge today. JHONY
[2020-08-20 21:36] LABS: ACETAMINOPHEN LEVEL < 2.0 UG/ML (10.0-30.0); ALT/SGPT 63 U/L (12-78); BILIRUBIN,DIRECT 0.2 MG/DL (0.0-0.2); BILIRUBIN,TOTAL 0.4 MG/DL (0.2-1.0); BLOOD UREA NITROGEN 16 MG/DL (7-18); CALCIUM LEVEL 8.9 MG/DL (8.5-10.1); CARBON DIOXIDE LEVEL 25 MEQ/L (21-32); CHLORIDE LEVEL 107 MEQ/L (98-107); CREATININE FOR GFR 1.28 MG/DL (0.70-1.30); ETHYL ALCOHOL (ETHANOL) < 0.003 % (0.000-0.010); FREE T4 1.37 NG/DL (0.76-1.46); GLOMERULAR FILTRATION RATE > 60.0 (>60); GLUCOSE, FASTING 93 MG/DL (70-100); POTASSIUM SERUM 4.3 MEQ/L (3.5-5.1); SALICYLATE LEVEL 4.1 MG/DL (5.0-30.0); SODIUM LEVEL 140 MEQ/L (136-145); TOTAL PROTEIN 7.3 GM/DL (6.4-8.2)
[2020-08-20 21:37] LABS: AMPHETAMINES LEVEL URINE NEGATIVE (NEGATIVE); BARBITURATES URINE NEGATIVE (NEGATIVE); BENZODIAZEPINES URINE NEGATIVE (NEGATIVE); CANNABINOIDS URINE NEGATIVE (NEGATIVE); COCAINE METABOLITE URINE NEGATIVE (NEGATIVE); METHADONE URINE NEGATIVE (NEGATIVE); OPIATES URINE NEGATIVE (NEGATIVE); PHENCYCLIDINE URINE NEGATIVE (NEGATIVE)
== END 2020-06-10 12:55 | disposition home or self-care (01) | DRG 750 ==
LOC: M ED 16:50 → M PSY 19:27
PROVIDERS: ADMIT Psychiatry & Neurology Psychiatry; ATTEND Psychiatry & Neurology Psychiatry
DX: F20.9 Schizophrenia, unspecified (principal)

== ENCOUNTER 2022-03-20 11:29 | Emergency (ER) | payer OTHER ==
[~2022-03-20] VITALS: Ht 170.2 cm; Wt 94.1 kg
[2022-03-20 11:29] VITALS: BP 142/78
[~2022-03-20 11:29] MED LIST changes: -OLAN15TA PO; +OLAN15TA13 PO; +OLAN1TAB16 PO; -OLAN5TAB PO
[2022-03-20] MEDS ORDERED: HALO10TA20 (11:42)
[2022-03-20] MEDS ORDERED: METF-838 (11:42)
[2022-03-20] MEDS ORDERED: FENO160T10 (11:42)
== END 2022-03-20 16:41 | disposition left against medical advice (07) ==
LOC: M ED 11:29
DX: Z53.29 Procedure and treatment not carried out because of patient's decision for other reasons (principal)

== ENCOUNTER 2022-08-27 22:25 | Emergency (ER) | payer OTHER ==
[~2022-08-27] VITALS: Ht 170.2 cm; Wt 94.1 kg
[~2022-08-27 22:25] MED LIST changes: -CLOZ200T PO; +CLOZ200T4 PO; +FENO160T10; +HALO10TA20; +METF-838
[2022-08-27] MEDS ORDERED: PROP10TA56 PO (22:39)
[2022-08-27 23:12] LABS: HEMATOCRIT 41.9 % (42.0-52.0); HEMOGLOBIN 14.1 g/dl (13.5-17.5); MEAN CORPUSCULAR HEMOGLOBIN 29.3 pg (27.0-33.0); MEAN CORPUSCULAR HGB CONC 33.7 g/dl (32.0-36.5); MEAN CORPUSCULAR VOLUME 86.9 fl (80.0-96.0); PLATELET COUNT, AUTOMATED 234 10^3/uL (150-450); RED BLOOD COUNT 4.82 10^6/uL (4.30-6.10); WHITE BLOOD COUNT 8.3 10^3/uL (4.0-10.0)
[2022-08-27 23:58] LABS: ACETAMINOPHEN LEVEL < 2.0 UG/ML (10.0-30.0); ALBUMIN 3.7 GM/DL (3.2-5.2); ALT/SGPT 27 U/L (12-78); BILIRUBIN,DIRECT 0.1 MG/DL (0.0-0.2); BILIRUBIN,TOTAL 0.3 MG/DL (0.2-1.0); BLOOD UREA NITROGEN 11 MG/DL (7-18); CALCIUM LEVEL 9.1 MG/DL (8.5-10.1); CARBON DIOXIDE LEVEL 27 MEQ/L (21-32); CHLORIDE LEVEL 105 MEQ/L (98-107); ETHYL ALCOHOL (ETHANOL) 0.003 % (0.000-0.010); GLOMERULAR FILTRATION RATE > 60.0 (>60); GLUCOSE, FASTING 139 MG/DL (70-100); POTASSIUM SERUM 3.8 MEQ/L (3.5-5.1); SALICYLATE LEVEL 3.4 MG/DL (5.0-30.0); SODIUM LEVEL 137 MEQ/L (136-145)
[2022-08-28 06:12] LABS: AMPHETAMINES LEVEL URINE NEGATIVE (NEGATIVE); BARBITURATES URINE NEGATIVE (NEGATIVE); BENZODIAZEPINES URINE NEGATIVE (NEGATIVE); CANNABINOIDS URINE POSITIVE (NEGATIVE); COCAINE METABOLITE URINE NEGATIVE (NEGATIVE); METHADONE URINE NEGATIVE (NEGATIVE); OPIATES URINE NEGATIVE (NEGATIVE); PHENCYCLIDINE URINE NEGATIVE (NEGATIVE)
[2022-08-28 07:00] LABS: RSV AMPLIFICATION NEGATIVE (NEGATIVE)
[2022-08-28 07:35] VITALS: BP 166/87
== END 2022-08-28 07:37 | disposition home or self-care (01) ==
LOC: M ED 22:25
DX: F41.9 Anxiety disorder, unspecified (principal); F31.9 Bipolar disorder, unspecified; F12.10 Cannabis abuse, uncomplicated; Z88.2 Allergy status to sulfonamides; Z79.84 Long term (current) use of oral hypoglycemic drugs; Z79.899 Other long term (current) drug therapy

== ENCOUNTER → 2022-11-07 | Outpatient (CLI) | payer OTHER ==
[~2022-11-07] MED LIST changes: +PROP10TA56 PO
== END ==
LOC: M SOG 07:51
PROVIDERS: ATTEND Orthopaedic Surgery
DX: S43.101D Unspecified dislocation of right acromioclavicular joint, subsequent encounter (principal)

== ENCOUNTER → 2022-12-12 | Outpatient (REF) | payer OTHER | LOC: M LAB REF 16:49 | PROVIDERS: ATTEND Physician Assistant | DX: J02.9 Acute pharyngitis, unspecified (principal) ==

== ENCOUNTER 2023-04-16 20:03 | Emergency (ER) | payer OTHER ==
[~2023-04-16] VITALS: Ht 170.2 cm; Wt 93.5 kg
[~2023-04-16 20:03] MED LIST changes: +CIPR0.3S37 OP; -CIPR0.3S6 OP
[2023-04-16 20:04] VITALS: BP 145/93; TEMP 99.7; O2SAT 98
[2023-04-16] MEDS ORDERED: ZYPR2.5T2 PO (20:10)
[2023-04-16] MEDS ORDERED: ZYPR1TAB2 PO (20:10)
== END 2023-04-17 00:08 | disposition left against medical advice (07) ==
LOC: M ED 20:03
DX: Z53.21 Procedure and treatment not carried out due to patient leaving prior to being seen by health care provider (principal)

== ENCOUNTER → 2024-01-17 | Outpatient (REF) | payer OTHER ==
[~2024-01-17] MED LIST changes: +ZYPR1TAB2 PO; +ZYPR2.5T2 PO
[2024-01-17 17:52] LABS: HEMOGLOBIN A1c 5.4 % (4.0-6.0)
[2024-01-17 18:08] LABS: ALKALINE PHOSPHATASE 55 U/L (46-116); ALT/SGPT 27 U/L (7.0-40); AST/SGOT 37 U/L (<34); BILIRUBIN,TOTAL 0.3 MG/DL (0.3-1.2); BLOOD UREA NITROGEN 11 MG/DL (9-23); CALCIUM LEVEL 9.3 MG/DL (8.5-10.1); CARBON DIOXIDE LEVEL 32 MMOL/L (20-31); CHLORIDE LEVEL 103 MMOL/L (98-107); CHOLESTEROL LEVEL 188 MG/DL (<200); CHOLESTEROL RISK RATIO 7.04 (<5); CREATININE FOR GFR 1.02 MG/DL (0.70-1.30); GLOMERULAR FILTRATION RATE > 60.0 (>60); GLUCOSE, FASTING 83 MG/DL (60-100); HDL CHOLESTEROL 26.7 MG/DL (>40); LDL CHOLESTEROL 131.5 MG/DL (<100); NON-HDL-C 161.3 MG/DL; POTASSIUM SERUM 4.7 MMOL/L (3.5-5.1); SODIUM LEVEL 136 MMOL/L (136-145); TOTAL PROTEIN 7.2 G/DL (5.7-8.2); TRIGLYCERIDES LEVEL 149 MG/DL (<150)
[2024-01-17 18:09] LABS: THYROID STIMULATING HORMONE 2.786 uIU/ML (0.55-4.78); TOTAL 25(OH) VITAMIN D 82.1 NG/ML (20.0-100.0)
[2024-01-17 18:42] LABS: HIV 1&2 SCREEN NEGATIVE (NEGATIVE)
[2024-01-17 18:49] LABS: HEPATITIS C VIRUS ABY INDEX < 0.02 INDEX (<0.8)
== END ==
LOC: M LAB REF 16:06
PROVIDERS: ATTEND Physician Assistant
DX: E55.9 Vitamin D deficiency, unspecified (principal); E66.9 Obesity, unspecified; Z11.9 Encounter for screening for infectious and parasitic diseases, unspecified

== ENCOUNTER → 2024-05-21 | Outpatient (REF) | payer OTHER ==
[2024-05-21 19:18] LABS: ALKALINE PHOSPHATASE 88 U/L (46-116); ALT/SGPT 21 U/L (7.0-40); AST/SGOT 19 U/L (<34); BILIRUBIN,TOTAL 0.4 MG/DL (0.3-1.2); BLOOD UREA NITROGEN 8 MG/DL (9-23); CARBON DIOXIDE LEVEL 30 MMOL/L (20-31); CHLORIDE LEVEL 104 MMOL/L (98-107); CHOLESTEROL LEVEL 192 MG/DL (<200); CHOLESTEROL RISK RATIO 6.59 (<5); CREATININE FOR GFR 1.13 MG/DL (0.70-1.30); GLOMERULAR FILTRATION RATE > 60.0 (>60); GLUCOSE, FASTING 77 MG/DL (60-100); HDL CHOLESTEROL 29.1 MG/DL (>40); LDL CHOLESTEROL 122.9 MG/DL (<100); NON-HDL-C 162.9 MG/DL; POTASSIUM SERUM 4.6 MMOL/L (3.5-5.1); SODIUM LEVEL 139 MMOL/L (136-145); TRIGLYCERIDES LEVEL 200 MG/DL (<150)
== END ==
LOC: M LAB REF 16:30
PROVIDERS: ATTEND Physician Assistant
DX: T38.0X5A Adverse effect of glucocorticoids and synthetic analogues, initial encounter (principal)

== ENCOUNTER 2024-07-12 01:59 | Emergency (ER) | payer OTHER ==
[~2024-07-12] VITALS: Ht 170.2 cm; Wt 99.0 kg
[2024-07-12 01:59] VITALS: BP 122/73; TEMP 98.5; O2SAT 95
== END 2024-07-12 03:35 | disposition left against medical advice (07) ==
LOC: M ED 01:59
DX: Z53.21 Procedure and treatment not carried out due to patient leaving prior to being seen by health care provider (principal)

== ENCOUNTER 2024-11-21 13:40 | Emergency (ER) | payer OTHER ==
[~2024-11-21] VITALS: Ht 170.2 cm; Wt 86.7 kg
[~2024-11-21 13:40] MED LIST changes: -OLAN15TA13 PO; +OLAN15TA69 PO
[2024-11-21 13:46] VITALS: BP 133/76; TEMP 99.9; O2SAT 97
== END 2024-11-21 15:15 | disposition left against medical advice (07) ==
LOC: M ED 13:40
DX: Z53.21 Procedure and treatment not carried out due to patient leaving prior to being seen by health care provider (principal)

== ENCOUNTER → 2025-02-22 | Outpatient (REF) | payer OTHER ==
[2025-02-22 18:23] LABS: BASO # 0.1 10^3/uL (0.0-0.2); BASO % 0.8 % (0.0-1.0); EOS # 0.3 10^3/uL (0.0-0.5); EOS % 2.4 % (0.0-3.0); HEMATOCRIT 48.4 % (42.0-52.0); HEMOGLOBIN 16.7 g/dl (13.5-17.5); LYMPH # 2.5 10^3/uL (1.5-5.0); LYMPH % 22.6 % (24.0-44.0); MEAN CORPUSCULAR HEMOGLOBIN 31.2 pg (27.0-33.0); MEAN CORPUSCULAR HGB CONC 34.5 g/dl (32.0-36.5); MEAN CORPUSCULAR VOLUME 90.3 fl (80.0-96.0); MONO # 0.7 10^3/uL (0.0-0.8); MONO % 6.1 % (2.0-8.0); NEUTROPHILS # 7.6 10^3/uL (1.5-8.5); NEUTROPHILS % 67.7 % (36.0-66.0); PLATELET COUNT, AUTOMATED 302 10^3/uL (150-450); RED BLOOD COUNT 5.36 10^6/uL (4.30-6.10); WHITE BLOOD COUNT 11.2 10^3/uL (4.0-10.0)
[2025-02-22 18:27] LABS: ALBUMIN 4.3 G/DL (3.2-5.2); ALKALINE PHOSPHATASE 68 U/L (40-129); ALT/SGPT 23 U/L (7.0-40); AST/SGOT 20 U/L (<34); BILIRUBIN,TOTAL 0.2 MG/DL (0.3-1.2); BLOOD UREA NITROGEN 13 MG/DL (9-23); CALCIUM LEVEL 9.6 MG/DL (8.5-10.1); CARBON DIOXIDE LEVEL 28 MMOL/L (20-31); CHLORIDE LEVEL 105 MMOL/L (98-107); CHOLESTEROL LEVEL 227 MG/DL (<200); CHOLESTEROL RISK RATIO 7.16 (<5); CREATININE FOR GFR 0.94 MG/DL (0.70-1.30); GLOMERULAR FILTRATION RATE > 90.0 (>60); GLUCOSE, FASTING 103 MG/DL (60-100); HDL CHOLESTEROL 31.7 MG/DL (>40); LDL CHOLESTEROL 121.7 MG/DL (<100); NON-HDL-C 195.3 MG/DL; POTASSIUM SERUM 4.1 MMOL/L (3.5-5.1); SODIUM LEVEL 140 MMOL/L (136-145); TOTAL PROTEIN 7.6 G/DL (5.7-8.2); TRIGLYCERIDES LEVEL 368 MG/DL (<150)
[2025-02-22 19:02] LABS: HEMOGLOBIN A1c 5.2 % (4.0-6.0)
== END ==
LOC: M LAB REF 17:22
PROVIDERS: ATTEND Physician Assistant
DX: R74.01 Elevation of levels of liver transaminase levels (principal); E78.2 Mixed hyperlipidemia; F55.3 Abuse of steroids or hormones

== ENCOUNTER → 2025-05-13 | Outpatient (REF) | payer OTHER ==
[~2025-05-13] MED LIST changes: +DEPA250T PO; -DEPA250T2 PO
[2025-05-13 19:23] LABS: HIV 1&2 SCREEN NEGATIVE (NEGATIVE)
[2025-05-13 19:31] LABS: HEPATITIS C VIRUS ABY INDEX < 0.02 INDEX (<0.8)
== END ==
LOC: M LAB REF 17:14
PROVIDERS: ATTEND Physician Assistant
DX: Z11.9 Encounter for screening for infectious and parasitic diseases, unspecified (principal)